=== PATIENT | male | born 1955 | race African-American/Black ===

== ENCOUNTER 2016-11-04 17:11 | Inpatient (IN) | payer MEDICARE, OTHER ==
[2016-11-04] VITALS (14 sets, daily range): BP systolic 82–260; BP diastolic 54–139; PULSE 62–96; RESP 14–20; TEMP 97.8; O2SAT 93–100
[~2016-11-04] VITALS: Ht 175.3 cm; Wt 57.5 kg
[~2016-11-04 17:11] MED LIST: CALC0.25 PO; CALC667T PO; CARV25TA PO; CLON-352 PO; CLON0.1T PO; CORE25TA PO; LISI-515 PO; LISI40TA PO; NIFE15TA PO; NIFE1TAB86 PO; RENATAB PO; RENATAB6 PO; SEVEL800 PO
--- NOTE | 2016-11-04 17:49 | RADRPT ---
EXAM DATE/TIME: 11/04/2016 17:24 [place] COMPARISON: No previous studies available for comparison. INDICATIONS : Chest Pain. MEDICAL HISTORY : Hypertension. Renal failure, chronic. Cardiovascular disease. SURGICAL HISTORY : Inguinal hernia repair. ENCOUNTER: Initial ACUITY: 2 days PAIN SCORE: 4/10 LOCATION: Bilateral chest FINDINGS: A single view of the chest demonstrates dual-lumen catheter in superior vena cava. No pneumothorax. N o effusion. Lungs are clear. CONCLUSION: 1. Dual-lumen catheter in superior vena cava. No focal consolidations or effusions. Broderick Leslie MD on November 04, 2016 at 17:46 Board Certified Radiologist. This report was verified electronically.
[2016-11-04] MEDS ORDERED: CALC667C (19:40)
[2016-11-04] MEDS ORDERED: SEVEL800 PO (19:40)
[2016-11-04] MEDS ORDERED: SODIUM BICARBONATE 8.4% SOLN 50 MEQ/50 ML VIAL SLOW IVP ONE ×2 (20:15→20:45)
[2016-11-04] MEDS ORDERED: INSULIN HUMAN REGULAR 1,000 UNITS/10 ML VIAL IV PUSH ONE (20:15)
[2016-11-04] MEDS ORDERED: CALCIUM GLUCONATE 10% 1 GM/10 ML VIAL SLOW IVP ONE ×2 (20:15→20:45)
[2016-11-04] MEDS ORDERED: SODIUM CHLORID 0.9% 500 ML INJ 500 ML IV ONE (20:15)
[2016-11-04] MEDS ORDERED: DEXTROSE 50% IN WATER 50 ML VIAL(D50) IV PUSH ONE (20:15)
[2016-11-04] MEDS ORDERED: RESP: ALBUTEROL CONC 2.5 MG/0.5 ML NEB INH ONE (20:15)
[2016-11-04 20:33] LABS: I-STAT POTASSIUM GREATER THAN 9.0 MMOL/L (3.5-4.9); I-STAT SODIUM 119 MMOL/L (138-146)
[2016-11-04 20:44] LABS: AUTOMATED NEUTROPHIL # 16.5 TH/MM3 (1.8-7.7); BASOPHIL # 0.1 TH/MM3 (0-0.2); BASOPHIL % 0.3 % (0.0-2.0); HEMATOCRIT 36.9 % (39.0-51.0); LYMPH % 3.9 % (9.0-44.0); LYMPHOCYTE # 0.7 TH/MM3 (1.0-4.8); MEAN CELL VOLUME 85.9 FL (80.0-100.0); MEAN CORPUSCULAR HEMOGLOBIN 28.8 PG (27.0-34.0); MEAN CORPUSCULAR HGB CONC 33.5 % (32.0-36.0); MONO % 8.6 % (0.0-8.0); NEUT % 87.2 % (16.0-70.0); PLATELET COUNT 215 TH/MM3 (150-450); RED CELL DISTRIBUTION WIDTH 19.8 % (11.6-17.2); WHITE BLOOD COUNT 18.9 TH/MM3 (4.0-11.0)
[2016-11-04] MEDS ORDERED: SODIUM POLYSTYRENE SULFONATE SUSP 15 GM/60 ML CUP PR ONE (20:45)
[2016-11-04] MEDS: LABETALOL INJ 500 MG in SODIUM CHLORIDE 0.9% INJ 150 ML IV SCH (20:45)
[2016-11-04 20:53] LABS: HEMO FLAGS AUTO DIFF
[2016-11-04] MEDS ORDERED: LABETALOL HCL 100 MG/20 ML VIAL IV PUSH ONE (21:00)
[2016-11-04 21:24] LABS: ACANTHOCYTES OCC (NORMAL); KERATOCYTES OCC (NORMAL); SCAN/DIFF AUTO DIFF CONFIRMED
--- NOTE | 2016-11-04 21:39 | PD ---
HPI Chief Complaint: Chest Pain Time Seen by Provider: 19:42 Travel History International Travel<30 days: No Contact w/Intl Traveler<30days: No Traveled to known affect area: No History of Present Illness HPI 61-year-old male came to the emergency room brought by his sister for not feeling well. Patient looks extremely sick. He is end-stage renal disease, hemodialysis dependent. His last dialysis was on Tuesday when he was supposed to be dialyzed today but he missed it because of feeling extremely sick and unable to make it to the dialysis center. His nutrition technician is Dr. Villarreal. He has been complaining of chest pain and abdominal pain. His blood pressure was more than 250 systolic. He was unable to give significant history due to the distress. [facility] Past Medical History Narrative Medical List of his past medical history as reviewed from the nursing note. Anemia: Yes Arthritis: Yes Asthma: No Autoimmune Disease: No Blood Disorders: No Anxiety: Yes Depression: No Heart Rhythm Problems: No Cancer: No Cardiomyopathy: Yes Cardiovascular Problems: Yes (HTN) High Cholesterol: No Chemotherapy: No Chest Pain: No COPD: No Cerebrovascular Accident: Yes (TIA) Diabetes: No Dialysis: Yes (hemodialysis ) Diminished Hearing: No Endocrine: No Gastrointestinal Disorders: Yes (HX PERITONITIS ) GERD: Yes Glaucoma: No Genitourinary: Yes Headaches: Yes ("of and on for the past 7 years and "when I get angry") Hepatitis: Yes (C) Hiatal Hernia: No Heparin Induced Thrombocytopen: No Hypertension: Yes Immune Disorder: No Implanted Vascular Access Dvce: Yes Kidney Stones: No Medical other: Yes (ARTHRITIS, ANEMIA, BACK/NECK PAIN) Musculoskeletal: Yes (ARTHRITIS, NECK/BACK PAIN) Neurologic: No Psychiatric: No Reproductive: No Respiratory: No Immunizations Current: Yes Migraines: No Radiation Therapy: No Renal Failure: Yes Seizures: No Sickle Cell Disease: No Sleep Apnea: No Thyroid Disease: No Ulcer: No Past Surgical History Abdominal Surgery: Yes (Bilateral Inguinal Hernia repair in 1960s) AICD: No Appendectomy: No Arteriovenous Shunt: Yes (RIGHT ARM) Body Medical Devices: AV DIALYSIS GRAFT (LEFT ARM), RIGHT UPPER ARM FISTULA, VAS CATH IN RIGHT CH Cardiac Surgery: No Cholecystectomy: No Ear Surgery: No Endocrine Surgery: No Eye Surgery: Yes (Knot removed from left upper eye lid ) Genitourinary Surgery: No Gynecologic Surgery: No Insulin Pump: No Joint Replacement: No Neurologic Surgery: No Oral Surgery: No Pacemaker: No Thoracic Surgery: Yes (Lumpectomy on left chest breast tissue removed 25 years ago ) Other Surgery: Yes (LUMP REMOVED FROM RIGHT BREAST TISSUE, FISTULA TO RIGHT ARM ) Social History Alcohol Use: No (HX OF) Tobacco Use: No (quit 1975) Substance Use: Yes (OCCAS POT) Allergies-Medications (Allergen,Severity, Reaction): Coded Allergies: No Known Allergies (Verified , 07/01/16) Comments No known drug allergies. Reported Meds & Prescriptions Reported Meds & Active Scripts Active Reported Calcium Acetate (Calcium Acetate (Phosphate Bin) 667 Mg Cap Renvela (Sevelamer Carbonate) 800 Mg Tab 800 Mg PO 5 TIMES A DAY [place] Rx (B-Complex W/ C & Folic Acid) 1 Tab 1 Tab PO DAILY Nifedical XL (Nifedipine) 60 Mg Tab 60 Mg PO BID Carvedilol 25 Mg Tab 25 Mg PO BID Calcitriol 0.25 Mcg Cap 0.25 Mcg PO DAILY Lisinopril 20 Mg Tab 20 Mg PO BID Clonidine (Clonidine HCl) 0.1 Mg Tab 0.1 Mg PO TID Narrative Medication List of his home medications reviewed from the nursing note. Review of Systems Except as stated in HPI: all other systems reviewed are Neg Physical Exam Narrative GENERAL: Lethargic, moderate distress, emaciated SKIN: Warm and dry. Right chest Vas-Cath, tenting of the skin HEAD: Atraumatic. Normocephalic. EYES: Pupils equal and round. No scleral icterus. No injection or drainage. ENT: No nasal bleeding or discharge. Dry mucous membrane NECK: Trachea midline. No JVD. CARDIOVASCULAR: Regular rate and rhythm. No murmur appreciated. RESPIRATORY: No accessory muscle use. Clear to auscultation. Breath sounds equal bilaterally. GASTROINTESTINAL: Abdomen soft, non-tender, nondistended. Hepatic and splenic margins not palpable. MUSCULOSKELETAL: No obvious deformities. No clubbing. No cyanosis. No edema. NEUROLOGICAL: Awake and alert. No obvious cranial nerve deficits. Motor grossly within normal limits. Normal speech. PSYCHIATRIC: Appropriate mood and affect; insight and judgment normal. Data Data Last Documented VS Vital Signs Date Time Temp Pulse Resp B/P Pulse Ox O2 Delivery O2 Flow Rate FiO2 11/04/16 19:31 99 Room Air 11/04/16 19:31 81 18 11/04/16 19:25 239/125 11/04/16 17:17 97.8 Orders Electrocardiogram (11/04/16 17:23) Complete Blood Count With Diff (11/04/16 17:23) Basic Metabolic Panel (Bmp) (11/04/16 17:23) Ckmb (Isoenzyme) Profile (11/04/16 17:23) Troponin I (11/04/16 17:23) Chest, Single Ap (11/04/16 17:23) Iv Access Insert/Monitor (11/04/16 17:23) Ecg Monitoring (11/04/16 17:23) Oxygen Administration (11/04/16 17:23) Oximetry (11/04/16 17:23) Sodium Chlorid 0.9% 500 Ml Inj (Ns 500 M (11/04/16 20:15) Labetalol Inj (Trandate Inj) (11/04/16 20:15) Calcium Gluconate Inj (Calcium Gluconate (11/04/16 20:15) Insulin Human Regular Inj (Novolin R Inj (11/04/16 20:15) Dextrose 50% In Mone (Vial) Inj (D50w (Vi (11/04/16 20:15) Sodium Bicarbonate 8.4% Inj (Sodium Bica (11/04/16 20:15) Albuterol Concentrated Neb (Albuterol Co (11/04/16 20:15) I-Stat Profile (11/04/16 20:07) Consult Vascular Access Team (11/04/16 ) Calcium Gluconate Inj (Calcium Gluconate (11/04/16 20:45) Sodium Bicarbonate 8.4% Inj (Sodium Bica (11/04/16 20:45) Sodium Polysty Sulfate Liq (Kayexalate L (11/04/16 20:45) Admit Order (Ed Use Only) (11/04/16 20:40) Labs Laboratory Tests Test 11/04/16 20:10 White Blood Count 18.9 TH/MM3 Red Blood Count 4.30 MIL/MM3 Hemoglobin 12.4 GM/DL Bedside Hemoglobin 12.6 G/DL Hematocrit 36.9 % Bedside Hematocrit 37.0 % Mean Corpuscular Volume 85.9 FL Mean Corpuscular Hemoglobin 28.8 PG Mean Corpuscular Hemoglobin 33.5 % Concent Red Cell Distribution Width 19.8 % Platelet Count 215 TH/MM3 Mean Platelet Volume 7.6 FL Neutrophils (%) (Auto) 87.2 % Lymphocytes (%) (Auto) 3.9 % Monocytes (%) (Auto) 8.6 % Eosinophils (%) (Auto) 0.0 % Basophils (%) (Auto) 0.3 % Neutrophils # (Auto) 16.5 TH/MM3 Lymphocytes # (Auto) 0.7 TH/MM3 Monocytes # (Auto) 1.6 TH/MM3 Eosinophils # (Auto) 0.0 TH/MM3 Basophils # (Auto) 0.1 TH/MM3 CBC Comment AUTO DIFF Differential Comment AUTO DIFF CONFIRMED Acanthocytes OCC Keratocytes OCC Bedside Sodium 119 MMOL/L Bedside Potassium GREATER THAN 9.0 MMOL/L Bedside Chloride 98 MMOL/L Bedside Blood Urea Nitrogen GREATER THAN 140 MG/DL Bedside Glucose 90 MG/DL MDM Medical Decision Making Medical Screen Exam Complete: Yes Emergency Medical Condition: Yes Medical Record Reviewed: Yes Interpretation(s) Twelve-lead EKG was reviewed by me. Normal sinus rhythm, peaked T waves, white QRS complex, left axis deviation. Heart rate of 87 bpm. Differential Diagnosis Hyperkalemia, hypertensive crisis, dehydration Narrative Course 9 PM given patient's initial presentation and EKG and the fact that he missed his dialysis I ordered a prophylactic treatment for hyperkalemia. Patient was a difficult peripheral access and I put a left EJ. I pushed the medications to the left EJ once the i-STAT chemistry came back with a potassium of greater than 9. I discussed the case with Dr. Hernandez who was covering for patient's nutrition technician Dr. Villarreal. He arranged for emergent dialysis and patient is currently getting dialyzed in the room. Also discussed the case with the saddle and harness maker who came to see the patient and has admitted the patient. Patient has been started on labetalol drip and a 20 mg IV labetalol bolus was given as well. 10 PM repeat i-STAT chemistry shows a potassium of 4.9 after the medications. Patient is being emergently dialyzed in ER. His blood pressure currently is in the 180s systolic. Awaiting for an ICU bed once the dialysis is over. Repeat EKG showed improving T waves and QRS complex normal width. Heart rate was 74 bpm. Critical Care Narrative Aggregate critical care time was 75 minutes. Time to perform other separately billable procedures was not included in the critical care time. My time did not include minutes spent treating any other patients simultaneously or on activities that did not directly contribute to the patient's treatment. The services I provided to this patient were to treat and/or prevent clinically significant deterioration that could result in: Critical hyperkalemia, renal failure, emergent dialysis, hyperkalemia medical management, hypertensive crisis I provided critical care services requiring my management, as noted below: Chart data review, documentation time, medication orders and management, vital sign assessments/reviewing monitor data, ordering and reviewing lab tests, ordering and interpreting/reviewing x-rays and diagnostic studies, care of the patient and discussion of the patient with the admitting physicians. Procedures Procedure Narrative EJ line: Patient was a difficult peripheral IV access. He was put in Trendelenburg position and the left side of the neck was sterilized with alcohol pad. Once EJ was identified 20-gauge and angiocatheter was inserted in first attempt. Blood was collected in the tubes and line was secured. Patient tolerated the procedure well. EKG Prior to Arrival: Yes Physician Communication Physician Communication Dr. Justen Verma Diagnosis Primary Impression: critical hyperkalemia Additional Impressions: Renal failure (ARF), acute on chronic Hypertensive crisis Dehydration Admitting Information Admitting Physician Requests: Admit Nemo Santos MD Nov 04, 2016 21:39
[2016-11-04] MEDS ORDERED: MISCELLANEOUS NURSING INFORMATION XX SCH (21:45)
[2016-11-04] MEDS ORDERED: CHLORHEXIDINE GLUCONATE 2 % 1 PACK (2 CLOTHS) TOP PRN (21:45)
[2016-11-04] MEDS ORDERED: SODIUM CHLORIDE 0.9% FLUSH 5 ML FLUSH IV FLUSH PRN (21:45)
[2016-11-04 21:56] LABS: I-STAT POTASSIUM 4.9 MMOL/L (3.5-4.9)
[2016-11-04] MEDS ORDERED: RESP: ALBUTEROL 2.5 MG/IPRATROPIUM 0.5 MG NEB (PRN) INH (22:00)
[2016-11-04] MEDS ORDERED: ONDANSETRON HCL 4 MG/2 ML VIAL IV PRN (22:00)
[2016-11-04] MEDS ORDERED: ACETAMINOPHEN 325 MG TAB PO PRN (22:00)
[2016-11-04 22:21] LABS: BICARBONATE 22.2 MEQ/L (21.0-32.0)
[2016-11-04] MEDS: RESP: ALBUTEROL 2.5 MG/IPRATROPIUM 0.5 MG NEB (SCH) INH (22:50)
[2016-11-04] MEDS ORDERED: BISACODYL 10 MG SUPP RECTAL PRN (23:00)
[2016-11-04] MEDS: HEPARIN SODIUM - IV 10,000 UNITS/10 ML VIAL OTHER PRN (23:59)
[2016-11-05] VITALS (20 sets, daily range): BP systolic 99–269; BP diastolic 48–129; PULSE 66–88; RESP 13–20; TEMP 98.1–98.6; O2SAT 96–100
[2016-11-05] MEDS ORDERED: SODIUM CHLOR 0.9% 1000 ML IV PRN
[2016-11-05] MEDS ORDERED: diphenhydrAMINE HCL 25 MG CAP PO PRN
[2016-11-05] MEDS ORDERED: ONDANSETRON HCL 4 MG/2 ML VIAL IV PRN
[2016-11-05] MEDS ORDERED: SODIUM CHLORIDE 0.9% FLUSH 5 ML FLUSH IVF PRN
[2016-11-05] MEDS: GENTAMICIN SULFATE (DIALYSIS USE ONLY) 20 MG/2 ML VIAL OTHER PRN
[2016-11-05] MEDS ORDERED: ACETAMINOPHEN 325 MG TAB PO PRN
[2016-11-05] MEDS ORDERED: NS 250 ML IV PRN
[2016-11-05] MEDS ORDERED: GELATIN 12 MM/7 MM FOAM TOP PRN
[2016-11-05] MEDS ORDERED: cloNIDine HCL 0.1 MG TAB PO PRN
[2016-11-05] MEDS ORDERED: MANNITOL 12.5 GM/50 ML VIAL IV PRN
[2016-11-05] MEDS ORDERED: ALBUMIN HUMAN 25% 25 GM/100 ML BAGP IV PRN
[2016-11-05] MEDS ORDERED: NITROGLYCERIN 0.4 MG SL 25 TABS/BTL SL PRN
[2016-11-05] MEDS ORDERED: HEPARIN SODIUM - IV 10,000 UNITS/10 ML VIAL IV FLUSH PRN
[2016-11-05] MEDS: SODIUM CHLOR 0.9% 1000 ML IV PRN
--- NOTE | 2016-11-05 00:03 | HHI.HP ---
HPI Service Critical Care Medicine Primary Care Physician Antonio Villarreal MD Admission Diagnosis ARF, hyperkalemia, hypertensive crisis Diagnosis: Travel History International Travel<30 Days: No Contact w/Intl Traveler <30 Da: No Traveled to Known Affected Are: No History of Present Illness HPI This is a 61-year-old [place] male that presented to the ED with generalized malaise, abdominal pain and chest pain. The patient's medical history significant for end-stage renal disease, and cardiac disease. His last dialysis was on Tuesday when he was supposed to be dialyzed today but he missed it because of feeling extremely sick and unable to make it to the dialysis center. His prosthetics assistant is Dr. Villarreal. He has been complaining of chest pain and abdominal pain. In the ED, his blood pressure was more than 250 systolic. Laboratory studies were obtained the patient's potassium level was noted to be 9.0. The patient underwent emergent hemodialysis, a labetalol infusion was begun in the ED. Critical care medicine was consulted for management. History PFSH Past Medical History Narrative Medical List of his past medical history as reviewed from the nursing note. Anemia: Yes Arthritis: Yes Asthma: No Autoimmune Disease: No Blood Disorders: No Anxiety: Yes Depression: No Heart Rhythm Problems: No Cancer: No Cardiomyopathy: Yes Cardiovascular Problems: Yes (HTN) High Cholesterol: No Chemotherapy: No Chest Pain: No COPD: No Cerebrovascular Accident: Yes (TIA) Diabetes: No Dialysis: Yes (hemodialysis - ) Diminished Hearing: No Endocrine: No Gastrointestinal Disorders: Yes (HX PERITONITIS ) GERD: Yes Glaucoma: No Genitourinary: Yes Headaches: Yes ("of and on for the past 7 years and "when I get angry") Hepatitis: Yes (C) Hiatal Hernia: No Heparin Induced Thrombocytopen: No Hypertension: Yes Immune Disorder: No Implanted Vascular Access Dvce: Yes Kidney Stones: No Medical other: Yes (ARTHRITIS, ANEMIA, BACK/NECK PAIN) Musculoskeletal: Yes (ARTHRITIS, NECK/BACK PAIN) Neurologic: No Psychiatric: No Reproductive: No Respiratory: No Immunizations Current: Yes Migraines: No Radiation Therapy: No Renal Failure: Yes Seizures: No Sickle Cell Disease: No Sleep Apnea: No Thyroid Disease: No Ulcer: No Past Surgical History Abdominal Surgery: Yes (Bilateral Inguinal Hernia repair in 1960s) AICD: No Appendectomy: No Arteriovenous Shunt: Yes (RIGHT ARM) Body Medical Devices: AV DIALYSIS GRAFT (LEFT ARM), RIGHT UPPER ARM FISTULA, VAS CATH IN RIGHT CH Cardiac Surgery: No Cholecystectomy: No Ear Surgery: No Endocrine Surgery: No Eye Surgery: Yes (Knot removed from left upper eye lid ) Genitourinary Surgery: No Gynecologic Surgery: No Insulin Pump: No Joint Replacement: No Neurologic Surgery: No Oral Surgery: No Pacemaker: No Thoracic Surgery: Yes (Lumpectomy on left chest breast tissue removed 25 years ago ) Other Surgery: Yes (LUMP REMOVED FROM RIGHT BREAST TISSUE, FISTULA TO RIGHT ARM ) Social History Alcohol Use: No (HX OF) Tobacco Use: No (quit 1975) Substance Use: Yes (OCCAS POT) Allergies-Medications Allergies-Medications (Allergen,Severity, Reaction): Coded Allergies: No Known Allergies (Verified , 07/01/16) Comments No known drug allergies. Reported Meds & Prescriptions Reported Meds & Active Scripts Active Reported Calcium Acetate (Calcium Acetate (Phosphate Bin) 667 Mg Cap Renvela (Sevelamer Carbonate) 800 Mg Tab 800 Mg PO 5 TIMES A DAY [place] Rx (B-Complex W/ C & Folic Acid) 1 Tab 1 Tab PO DAILY Nifedical XL (Nifedipine) 60 Mg Tab 60 Mg PO BID Carvedilol 25 Mg Tab 25 Mg PO BID Calcitriol 0.25 Mcg Cap 0.25 Mcg PO DAILY Lisinopril 20 Mg Tab 20 Mg PO BID Clonidine (Clonidine HCl) 0.1 Mg Tab 0.1 Mg PO TID Narrative Medication List of his home medications reviewed from the nursing note. ROS Review of Systems Except as stated in HPI: all other systems reviewed are Neg Review of Systems Gastrointestinal: COMPLAINS OF: Abdominal pain Past Family Social History Allergies: Coded Allergies: No Known Allergies (Verified , 07/01/16) Physical Exam Vital Signs Vital Signs Date Time Temp Pulse Resp B/P Pulse Ox O2 Delivery O2 Flow Rate FiO2 11/04/16 23:52 64 18 112/70 98 Room Air 11/04/16 23:29 65 18 95/57 95 Room Air 11/04/16 23:23 68 18 86/54 94 Room Air 11/04/16 23:00 72 18 82/61 95 Room Air 11/04/16 22:20 62 18 156/96 98 Room Air 11/04/16 21:41 74 18 180/103 99 Aerosol Mask 11/04/16 21:17 75 18 220/110 99 Room Air 11/04/16 20:59 78 18 210/100 98 Room Air 11/04/16 20:44 96 20 260/112 99 Room Air 11/04/16 19:31 99 Room Air 11/04/16 19:31 99 Room Air 11/04/16 19:31 81 18 99 Room Air 11/04/16 19:25 239/125 11/04/16 17:17 97.8 84 14 136/139 98 Physical Exam GENERAL: male looking older than stated age, lying in the bed in moderate distress SKIN: Warm and dry. HEAD: Atraumatic. Normocephalic. EYES: Pupils equal and round. No scleral icterus. No injection or drainage. ENT: No nasal bleeding or discharge. Mucous membranes pink and moist. NECK: Trachea midline. No JVD. CARDIOVASCULAR: Normal rate, regular rhythm. Severely hypertensive systolic blood pressures 249/120. Dialysis catheter in situ noted right subclavian RESPIRATORY: No accessory muscle use. Clear to auscultation. Breath sounds equal bilaterally. GASTROINTESTINAL: Abdomen soft, non-tender, nondistended. No guarding. MUSCULOSKELETAL: Extremities without clubbing, cyanosis, or edema. No obvious deformities. Noted right upper arm AV fistula, AV graft left arm. NEUROLOGICAL: Awake and alert. RASS 0. No gross focal/sensory deficits. Follows commands in all 4 extremities. Laboratory Laboratory Tests Test 11/04/16 11/04/16 20:10 21:35 White Blood Count 18.9 Red Blood Count 4.30 Hemoglobin 12.4 Bedside Hemoglobin 12.6 10.2 Hematocrit 36.9 Bedside Hematocrit 37.0 30.0 Mean Corpuscular Volume 85.9 Mean Corpuscular Hemoglobin 28.8 Mean Corpuscular Hemoglobin 33.5 Concent Red Cell Distribution Width 19.8 Platelet Count 215 Mean Platelet Volume 7.6 Neutrophils (%) (Auto) 87.2 Lymphocytes (%) (Auto) 3.9 Monocytes (%) (Auto) 8.6 Eosinophils (%) (Auto) 0.0 Basophils (%) (Auto) 0.3 Neutrophils # (Auto) 16.5 Lymphocytes # (Auto) 0.7 Monocytes # (Auto) 1.6 Eosinophils # (Auto) 0.0 Basophils # (Auto) 0.1 CBC Comment AUTO DIFF Differential Comment AUTO DIFF CONFIRMED Acanthocytes OCC Keratocytes OCC Bedside Sodium 119 132 Bedside Potassium GREATER THAN 4.9 9.0 Bedside Chloride 98 100 Bedside Blood Urea Nitrogen GREATER THAN 120 140 Bedside Glucose 90 96 Sodium Level 135 Potassium Level 5.0 Chloride Level 94 Carbon Dioxide Level 22.2 Anion Gap 19 Blood Urea Nitrogen 119 Creatinine 11.48 Estimat Glomerular Filtration 5 Rate Random Glucose 98 Calcium Level 7.9 Total Creatine Kinase 47 Troponin I 0.55 Result Diagram: 11/04/16200911/04/162134 Septic Shock Reassessment Heart: Regular rate and rhythm Lungs: Clear Skin: Warm Peripheral Pulses: Bounding Right Radial Bounding Left Radial Bounding Right Dorsalis Pedis Bounding Left Dorsalis Pedis Assessment and Plan Assessment and Plan Physical critically ill appearing -[place] male with multiple comorbid conditions to include end-stage renal failure presenting with a potassium of 9.0 , and hypertensive emergency, cardiovascular disease, angina, hemodialysis dependent. The patient's prognosis is guarded. Emergent dialysis this to be completed. Patient will be maintained on a antihypertensive infusion to tightly control blood pressure. Plan by systems: Neurologic: Pain -Patient has exocrine pancreatic insufficiency, has continuous abdominal pain -Neurochecks per ICU protocol -PRN Dilaudid and Fentanyl, will avoid morphine secondary to the active metabolic effects, morphine 6 glucoronide in ESRD Respiratory: -No acute issues maintain sat greater than 92% -Bronchodilators when necessary Cardiovascular: Hypertensive emergency Angina -Obtain 12-lead EKG - EF 45-60% -Continue beta alexandrea antihypertensive infusion-initial BP upon presentation 260/112. Patient was last hospitalized 08/15 for hypertensive emergency -Begin by mouth antihypertensive meds-Clonidine TID, Carvedilol BID, this am , plan wean infusion and resume additional antihypertensive meds lisinopril and nifedipine Renal: ESRD -Emergent dialysis -Resume schedule Tuesday -Nephrology consulted Dr. [id number] recommendations -- Strict I/Os FEN/GI: -Patient states he has a history of exocrine pancreatic insufficiency, will consult gastroenterology -Renal diet if tolerated -Bowel regimen -Zofran for nausea Heme/ID: Anemia of chronic disease Leukocytosis H/O hepatitis C -WBC 18.9 -Monitor serial lactate levels -Begin empiric antibiotics Endocrine: H/O Pancreatitis -Follow-up GI recommendations -Monitor blood glucose per ICU protocol -- SSI Prophylaxis: GI Prophylaxis Protonix DVT Prophylaxis -- SCDs Heparin Lines: Peripheral IVs 2 Dispo: This patient remains critically ill with one or more organ systems which are or may become a threat to life. I have spent in excess of 59 minutes discontinuously in the care and management of this patient. This time is exclusive of procedures, and includes, but is not limited to, evaluation of the patient, review of the medical record, discussions with family, consultants, nursing staff, or respiratory therapy, and documentation in the medical record. Code Status Full code Discussed Condition With ED RN at bedside Valerie Campuzano MD Nov 05, 2016 00:03
[2016-11-05] MEDS: HEPARIN SODIUM - SQ 10,000 UNITS/ML VIAL SQ SCH ×3 (02:29→23:41)
[2016-11-05] MEDS ORDERED: SODIUM CHLORIDE 0.9% FLUSH 5 ML FLUSH IV FLUSH PRN (03:30)
[2016-11-05] MEDS ORDERED: Vancomycin Consult Pharmacy 1 EA XX SCH (03:30)
[2016-11-05] MEDS ORDERED: ACETAMINOPHEN 1000 MG/100 ML VIAL IV ONE (03:30)
[2016-11-05] MEDS ORDERED: MISCELLANEOUS NURSING INFORMATION XX SCH (03:30)
[2016-11-05] MEDS ORDERED: CHLORHEXIDINE GLUCONATE 2 % 1 PACK (2 CLOTHS) TOP PRN (03:30)
[2016-11-05] MEDS ORDERED: fentaNYL CITRATE 250 MCG/5 ML AMP IV PUSH PRN (03:30)
[2016-11-05] MEDS: HYDROmorphone HCL PF 1 MG/ML VIAL IV PUSH PRN ×3 (03:58→23:42)
[2016-11-05] MEDS ORDERED: PIPERACIL-TAZO 4.5 GM PREMIX 100 ML IV SCH (04:00)
[2016-11-05] MEDS: CHLORHEXIDINE GLUCONATE 2 % 1 PACK (2 CLOTHS) TOP SCH (04:00)
[2016-11-05] MEDS ORDERED: CHLORHEXIDINE GLUCONATE 2 % 1 PACK (2 CLOTHS) TOP SCH (04:00)
[2016-11-05] MEDS: RESP: ALBUTEROL 2.5 MG/IPRATROPIUM 0.5 MG NEB (SCH) INH ×3 (04:02→20:59)
[2016-11-05 04:16] LABS: AUTOMATED NEUTROPHIL # 8.5 TH/MM3 (1.8-7.7); BASOPHIL # 0.1 TH/MM3 (0-0.2); BASOPHIL % 1.4 % (0.0-2.0); EOSINOPHIL % 0.1 % (0.0-4.0); HEMATOCRIT 33.9 % (39.0-51.0); HEMO FLAGS DIFF FINAL; LYMPH % 2.9 % (9.0-44.0); LYMPHOCYTE # 0.3 TH/MM3 (1.0-4.8); MEAN CELL VOLUME 86.6 FL (80.0-100.0); MEAN CORPUSCULAR HEMOGLOBIN 28.8 PG (27.0-34.0); MEAN CORPUSCULAR HGB CONC 33.3 % (32.0-36.0); MONO % 7.5 % (0.0-8.0); NEUT % 88.1 % (16.0-70.0); PLATELET COUNT 144 TH/MM3 (150-450); RED BLOOD COUNT 3.92 MIL/MM3 (4.50-5.90); RED CELL DISTRIBUTION WIDTH 19.8 % (11.6-17.2); WHITE BLOOD COUNT 9.7 TH/MM3 (4.0-11.0)
[2016-11-05 04:27] LABS: APTT (PATIENT) 30.5 SEC (24.3-30.1); PROTHROMBIN TIME - PATIENT 10.7 SEC (9.8-11.6)
[2016-11-05 04:48] LABS: BICARBONATE 21.4 MEQ/L (21.0-32.0); MAGNESIUM 4.5 MG/DL (1.5-2.5)
[2016-11-05] MEDS: PIPERACIL-TAZO 2.25 GM PREMIX 50 ML IV SCH ×4 (05:00→21:39)
[2016-11-05] MEDS ORDERED: VANCOMYCIN 1,000 MG/NS 250 ML IV SCH ×2 (06:00)
[2016-11-05] MEDS: LABETALOL INJ 500 MG in SODIUM CHLORIDE 0.9% INJ 150 ML IV SCH (06:14)
[2016-11-05] MEDS: PANTOPRAZOLE SODIUM 40 MG VIAL IV SCH (08:47)
[2016-11-05] MEDS: SODIUM CHLORIDE 0.9% FLUSH 5 ML FLUSH IV FLUSH SCH ×2 (08:47→21:34)
[2016-11-05] MEDS: CARVEDILOL 12.5 MG TAB PO SCH ×2 (08:48→21:34)
[2016-11-05] MEDS: cloNIDine HCL 0.1 MG TAB PO SCH ×3 (08:48→18:30)
[2016-11-05] MEDS: DOCUSATE SODIUM 100 MG CAP PO SCH ×2 (08:48→21:34)
[2016-11-05] MEDS ORDERED: SODIUM CHLORIDE 0.9% FLUSH 5 ML FLUSH IV FLUSH SCH (09:00)
--- NOTE | 2016-11-05 13:43 | PD.CONS ---
HPI Service Nephrology Consult Requested By Reason for Consult ESRD on HD, hypertension, hyperkalemia Primary Care Physician Antonio Villarreal MD History of Present Illness This is out 61 y/o AAM patient who missed dialysis on Tuesday due to weakness. His sister brought him in for evaluation last night. Potassium resulted at 9, he was emergently dialyzed overnight due to EKG changes, finishing just after midnight . Admission blood pressure also significantly elevated, he is on Labetalol gtt for systolic well over 200s. We were consulted for dialysis management. He has a PermCath right IJ, had old AVG removed left arm, now AVF recently placed right arm by Dr. Hussein. Complaining of chest pain on arrival, that has subsided. He is a full code. (Anne-Marie Baugh) Review of Systems Constitutional: COMPLAINS OF: Fatigue, DENIES: Diaphoretic episodes, Fever, Weight gain Respiratory: DENIES: Shortness of breath Cardiovascular: COMPLAINS OF: Chest pain, Dyspnea on Exertion, DENIES: Lower Extremity Edema Gastrointestinal: DENIES: Abdominal pain (Anne-Marie Baugh) Past Family Social History Allergies: Coded Allergies: No Known Allergies (Verified , 07/01/16) Past Medical History ESRD on HD T-Th-Sat HTN Anemia TIA Hep C Hx pancreatitis, former PD patient Anxiety/depression Hx of noncompliance Past Surgical History AVG with excision left arm AVF left arm PermCath PD catheter with removal hernia repair eye surgery right breast lumpectomy Reported Medications Calcium Acetate (Calcium Acetate (Phosphate Bin) 667 Mg Cap Renvela (Sevelamer Carbonate) 800 Mg Tab 800 Mg PO 5 TIMES A DAY [place] Rx (B-Complex W/ C & Folic Acid) 1 Tab 1 Tab PO DAILY Nifedical XL (Nifedipine) 60 Mg Tab 60 Mg PO BID Carvedilol 25 Mg Tab 25 Mg PO BID Calcitriol 0.25 Mcg Cap 0.25 Mcg PO DAILY Lisinopril 20 Mg Tab 20 Mg PO BID Clonidine (Clonidine HCl) 0.1 Mg Tab 0.1 Mg PO TID Active Ordered Medications Current Medications Medications (Trade) Dose Ordered Sig/Nuria Route Start Time Stop Time Status Last Admin (Trandate Inj/NS Inj) 250 ml @ 0 mls/hr TITRATE IV 11/04/16 20:15 11/05/16 06:14 (NS Flush) 2 ml UNSCH PRN IV FLUSH 11/04/16 21:45 (NS Flush) 2 ml BID IV FLUSH 11/05/16 09:00 11/05/16 08:47 (Tylenol) 650 mg Q6H PRN PO 11/04/16 22:00 (Protonix Inj) 40 mg DAILY IV 11/05/16 09:00 11/05/16 08:47 (Zofran Inj) 4 mg Q6H PRN IV 11/04/16 22:00 (Colace) 100 mg BID PO 11/05/16 09:00 11/05/16 08:48 (Dulcolax Supp) 10 mg DAILY PRN RECTAL 11/04/16 23:00 (Heparin Inj) 5,000 units Q12H SQ 11/04/16 23:00 11/05/16 02:29 Miscellaneous Information 1 Q361D XX 11/04/16 21:45 (Chlorhexidine 2% Cloth) 3 pack Taper DAILY@04 TOP 11/05/16 04:00 11/01/17 03:59 11/05/16 04:00 Chlorhexidine Gluconate 3 pack 3 pack UNSCH PRN TOP 11/04/16 21:45 (NS 1000 ml Inj) 1,000 ml @ 0 mls/hr TITRATE PRN IV 11/05/16 00:00 11/05/16 00:00 Heparin Sodium (Porcine) 8000 units 8,000 units UNSCH PRN IV FLUSH 11/05/16 00:00 Sodium Chloride 1,000 ml @ 200 mls/hr Q5H PRN IV 11/05/16 00:00 (NS 250 ml Inj) 200 ml @ 0 mls/hr UNSCH PRN IV 11/05/16 00:00 (Mannitol Inj) 12.5 gm UNSCH PRN IV 11/05/16 00:00 (Albumin 25% Inj) 25 gm UNSCH PRN IV 11/05/16 00:00 (NS Flush) 5 ml UNSCH PRN IVF 11/05/16 00:00 (Heparin Inj) Dwell Heparin to f... UNSCH PRN OTHER 11/05/16 00:00 11/04/16 23:59 (Gentamicin (Dialysis) Inj) 10 mg UNSCH PRN OTHER 11/05/16 00:00 11/05/16 00:00 (Gelfoam 12 Mm/7 Mm Top) 1 foam UNSCH PRN TOP 11/05/16 00:00 (Zofran Inj) 4 mg UNSCH PRN IV 11/05/16 00:00 (Benadryl) 25 mg UNSCH PRN PO 11/05/16 00:00 (Nitrostat Sl) 0.4 mg UNSCH PRN SL 11/05/16 00:00 (Catapres) 0.1 mg UNSCH PRN PO 11/05/16 00:00 (Dilaudid Pf Inj) 1 mg Q4H PRN IV PUSH 11/05/16 03:30 11/05/16 10:50 (Coreg) 25 mg BID PO 11/05/16 09:00 11/05/16 08:48 (Catapres) 0.1 mg TID PO 11/05/16 09:00 11/05/16 08:48 Fentanyl Citrate 50 mcg 50 mcg Q4HR PRN IV PUSH 11/05/16 03:30 (Zosyn 2.25 Gm Premix) 50 ml @ 200 mls/hr Q6H IV 11/05/16 05:00 Family History No hx of renal disorders Social History Lives alone, family nearby former ETOH and smoking hx He is disabled functionally independent full code (Anne-Marie Baugh) Physical Exam Vital Signs Vital Signs Date Time Temp Pulse Resp B/P Pulse Ox O2 Delivery O2 Flow Rate FiO2 11/05/16 12:00 88 11/05/16 10:00 75 11/05/16 08:00 72 11/05/16 06:00 69 11/05/16 04:54 98.3 75 13 140/84 100 11/05/16 04:33 68 20 157/78 98 Nasal Cannula 2 11/05/16 03:58 68 20 222/100 100 Nasal Cannula 2 11/05/16 03:50 216/98 11/05/16 03:00 68 20 233/104 98 Nasal Cannula 11/05/16 02:33 72 20 233/104 98 Nasal Cannula 2 11/05/16 02:32 75 20 269/129 98 11/05/16 02:12 70 20 267/128 100 11/05/16 01:40 72 20 267/128 100 11/04/16 23:52 64 18 112/70 98 Room Air 11/04/16 23:29 65 18 95/57 95 Room Air 11/04/16 23:23 68 18 86/54 94 Room Air 11/04/16 23:00 72 18 82/61 95 Room Air 11/04/16 22:20 62 18 156/96 98 Room Air 11/04/16 21:45 100 Nasal Cannula 2.00 11/04/16 21:41 74 18 180/103 99 Aerosol Mask 11/04/16 21:17 75 18 220/110 99 Room Air 11/04/16 20:59 78 18 210/100 98 Room Air 11/04/16 20:44 96 20 260/112 99 Room Air 11/04/16 19:31 99 Room Air 11/04/16 19:31 99 Room Air 11/04/16 19:31 81 18 99 Room Air 11/04/16 19:25 239/125 11/04/16 17:17 97.8 84 14 136/139 98 Physical Exam Young appearing AAM lying in bed, awake, alert normal neuro exam S1/S2, regular rate, no murmurs, BP 140/84; Permcath right IJ Lungs: clear in all go Abd: soft, non tender Ext: warm, no edema; Left arm, old AVG right arm AVF, + thrill/bruit Skin: intact Laboratory Laboratory Tests Test 11/04/16 11/04/16 11/05/16 11/05/16 20:10 21:35 03:55 04:35 White Blood Count 18.9 9.7 Red Blood Count 4.30 3.92 Hemoglobin 12.4 11.3 Bedside Hemoglobin 12.6 10.2 Hematocrit 36.9 33.9 Bedside Hematocrit 37.0 30.0 Mean Corpuscular Volume 85.9 86.6 Mean Corpuscular Hemoglobin 28.8 28.8 Mean Corpuscular Hemoglobin 33.5 33.3 Concent Red Cell Distribution Width 19.8 19.8 Platelet Count 215 144 Mean Platelet Volume 7.6 7.1 Neutrophils (%) (Auto) 87.2 88.1 Lymphocytes (%) (Auto) 3.9 2.9 Monocytes (%) (Auto) 8.6 7.5 Eosinophils (%) (Auto) 0.0 0.1 Basophils (%) (Auto) 0.3 1.4 Neutrophils # (Auto) 16.5 8.5 Lymphocytes # (Auto) 0.7 0.3 Monocytes # (Auto) 1.6 0.7 Eosinophils # (Auto) 0.0 0.0 Basophils # (Auto) 0.1 0.1 CBC Comment AUTO DIFF DIFF FINAL Differential Comment AUTO DIFF CONFIRMED Acanthocytes OCC Keratocytes OCC Bedside Sodium 119 132 Bedside Potassium GREATER THAN 4.9 9.0 Bedside Chloride 98 100 Bedside Blood Urea Nitrogen GREATER THAN 120 140 Bedside Glucose 90 96 Sodium Level 135 136 Potassium Level 5.0 4.0 Chloride Level 94 97 Carbon Dioxide Level 22.2 21.4 Anion Gap 19 18 Blood Urea Nitrogen 119 74 Creatinine 11.48 8.40 Estimat Glomerular Filtration 5 8 Rate Random Glucose 98 81 Calcium Level 7.9 8.1 Total Creatine Kinase 47 Troponin I 0.55 Prothrombin Time 10.7 Prothromb Time International 1.0 Ratio Activated Partial 30.5 Thromboplast Time Lactic Acid Level 1.8 Phosphorus Level 7.3 Magnesium Level 4.5 B-Type Natriuretic Peptide 4584 Nasal Screen MRSA (PCR) NEGATIVE (Anne-Marie Baugh) Result Diagram: 11/05/16 0355 11/05/16 0355 Imaging Last 72 hours Impressions Chest X-Ray 11/04/16 1723 Signed Impressions: Service Date/Time: October 17:24 - CONCLUSION: 1. Dual- lumen catheter in superior vena cava. No focal consolidations or effusions. Broderick Lelsie MD (Anne-Marie Baugh) Assessment and Plan Problem List: (1) ESRD (end stage renal disease) on dialysis Plan: typical -Tue HD schedule he was dialyzed overnight, finishing very early this morning (Tuesday) (1K bath, 2L UF) K has corrected, repeat lab in process Depending on above, may have next dialysis tomorrow per regular schedule fluid volume status acceptable continue current plan, orders reviewed Using PermCat for HD avoid procedures right arm high protein, low K diet (2) Hypertensive crisis Plan: On labetalol infusion, currently being titrated oral medications resumed, follow blood pressure it is improving (3) Hyperkalemia, diminished renal excretion Plan: Due to Missing dialysis repeat lab in process low K diet (4) Anemia Plan: No Epogen required, Hb acceptable also would avoid as Epogen can cause blood pressure to further elevate (5) Metabolic bone disease Plan: Phos elevated, I will resume Renvela check phos intermittently (Anne-Marie Baugh) Assessment and Plan patient was seen and examined. He is completely non compliant. Dialyzed emergently because of hyperkalemia yesterday. Dialysis most likely again tomorrow. (Yordan Hernandez MD) Anne-Marie Baugh Nov 05, 2016 13:43 Yordan Hernandez MD Nov 05, 2016 15:02
--- NOTE | 2016-11-05 14:21 | EKG ---
Date Performed: 11/04/2016 Time Performed: 21:05:45 PTAGE: 61 years EKG: Sinus rhythm POSSIBLE LEFT ATRIAL ENLARGEMENT MARKED LEFT AXIS DEVIATION MODERATE INTRAVENTRICULAR CONDUCTION DEL AY NONSPECIFIC ST & T-WAVE ABNORMALITY PROLONGED QT INTERVAL ABNORMAL ECG PREVIOUS TRACING : 11/04/2016 17.59 Since previous tracing, no significant change noted DOCTOR: Jaylin Fang Interpretating Date/Time 11/05/2016 14:20:32
--- NOTE | 2016-11-05 14:21 | EKG ---
Date Performed: 11/04/2016 Time Performed: 17:59:45 PTAGE: 61 years EKG: Sinus rhythm POSSIBLE LEFT ATRIAL ENLARGEMENT MARKED LEFT AXIS DEVIATION MODERATE INTRAVENTRICULAR CONDUCTION DEL AY NONSPECIFIC T-WAVE ABNORMALITY PROLONGED QT INTERVAL ABNORMAL ECG PREVIOUS TRACING : 10/08/2016 17.59 Since previous tracing, no significant change noted DOCTOR: Jaylin Fang Interpretating Date/Time 11/05/2016 14:20:22
[2016-11-05] MEDS ORDERED: hydrALAZINE HCL 20 MG/ML VIAL IV PUSH PRN (14:45)
[2016-11-05] MEDS ORDERED: LABETALOL HCL 100 MG/20 ML VIAL IV PUSH PRN (14:45)
[2016-11-05] MEDS: LISINOPRIL 20 MG TAB PO SCH ×2 (15:45→21:34)
[2016-11-05] MEDS: NIFEdipine 60 MG SUSTAINED RELEASE TAB PO SCH ×2 (15:49→21:34)
[2016-11-05] MEDS: SEVELAMER CARBONATE 800 MG TAB PO SCH (18:30)
[2016-11-05] MEDS ORDERED: SODIUM CHLOR 0.9% 1000 ML INJ 1,000 ML IV SCH (21:00)
[2016-11-06] VITALS: BP 120/58; PULSE 81; RESP 19; TEMP 98.3; O2SAT 99
[2016-11-06 02:00] VITALS: PULSE 73
[2016-11-06] MEDS: RESP: ALBUTEROL 2.5 MG/IPRATROPIUM 0.5 MG NEB (SCH) INH ×3 (03:22→14:55)
[2016-11-06 04:00] VITALS: BP 125/64; PULSE 72; RESP 10; TEMP 98.1; O2SAT 98
[2016-11-06] MEDS: CHLORHEXIDINE GLUCONATE 2 % 1 PACK (2 CLOTHS) TOP SCH (04:00)
[2016-11-06] MEDS: PIPERACIL-TAZO 2.25 GM PREMIX 50 ML IV SCH ×2 (05:00→11:35)
[2016-11-06 06:00] VITALS: PULSE 73
[2016-11-06] MEDS: SODIUM CHLOR 0.9% 1000 ML IV PRN (07:50)
[2016-11-06] MEDS: GENTAMICIN SULFATE (DIALYSIS USE ONLY) 20 MG/2 ML VIAL OTHER PRN (07:52)
[2016-11-06] MEDS: HEPARIN SODIUM - IV 10,000 UNITS/10 ML VIAL OTHER PRN (07:52)
[2016-11-06 08:00] VITALS: PULSE 70
[2016-11-06] MEDS: SEVELAMER CARBONATE 800 MG TAB PO SCH ×3 (08:00→16:01)
[2016-11-06] MEDS ORDERED: VITAMIN B CMPLX/VITC/FOLIC AC CAP PO SCH (09:00)
[2016-11-06 10:50] VITALS: O2SAT 99
[2016-11-06] MEDS: HEPARIN SODIUM - SQ 10,000 UNITS/ML VIAL SQ SCH (11:00)
[2016-11-06] MEDS: SODIUM CHLORIDE 0.9% FLUSH 5 ML FLUSH IV FLUSH SCH (11:18)
[2016-11-06] MEDS: PANTOPRAZOLE SODIUM 40 MG VIAL IV SCH (11:18)
[2016-11-06] MEDS: DOCUSATE SODIUM 100 MG CAP PO SCH (11:19)
[2016-11-06] MEDS: LISINOPRIL 20 MG TAB PO SCH (11:19)
[2016-11-06] MEDS: NIFEdipine 60 MG SUSTAINED RELEASE TAB PO SCH (11:19)
[2016-11-06] MEDS: CARVEDILOL 12.5 MG TAB PO SCH (11:20)
[2016-11-06] MEDS: cloNIDine HCL 0.1 MG TAB PO SCH ×2 (11:20→16:01)
[2016-11-06] MEDS: HYDROmorphone HCL PF 1 MG/ML VIAL IV PUSH PRN (11:21)
--- NOTE | 2016-11-06 12:02 | HHI.NPPN ---
Subjective Interval History had dialysis today. 4.5 liters removed. He feels better. Review of Systems General Constitutional: Fatigue Objective Data Data 11/05/16 11/06/16 19:00 07:00 Intake Total 683 ml 1544 ml Output Total 0 ml 550 ml Balance 683 ml 994 ml Intake Oral 750 ml IV Total 683 ml 161 ml Tube Feeding 283 ml Other 350 ml Output Urine Total 0 ml 350 ml Stool Total 200 ml # Bowel Movements 0 Vital Signs Date Time Temp Pulse Resp B/P Pulse Ox O2 Delivery O2 Flow Rate FiO2 11/06/16 10:50 99 11/06/16 08:00 70 11/06/16 06:00 73 11/06/16 04:00 72 11/06/16 04:00 98.1 72 10 125/64 98 11/06/16 02:00 73 11/06/16 00:00 81 11/06/16 00:00 98.3 81 19 120/58 99 11/05/16 22:00 70 11/05/16 20:59 96 Nasal Cannula 2.00 11/05/16 20:00 98.1 67 13 99/48 96 11/05/16 20:00 67 11/05/16 18:00 84 11/05/16 16:02 98 Nasal Cannula 2.00 11/05/16 16:00 82 11/05/16 16:00 98.6 72 14 114/58 100 11/05/16 14:00 71 11/05/16 12:00 88 11/05/16 12:00 98.3 67 15 159/69 96 -: 11/05/16 0355 11/05/16 0355 Physical Exam General Appearance: Well Developed, No Acute Distress Throat Throat Exam: Oral Mucosa [place] & Moist Pulmonary Resp Exam: Clear Bilaterally, Breath Sounds Equal Cardiology CV Exam: Regular, Normal Sinus Rhythm Gastrointestinal/Abdomen GI Exam: Soft, Non-Tender Musculoskeletal MS Exam: Joints Intact Integumentary Skin Exam: Clear, Intact Extremeties Extremities Exam: No Edema Neurologic Neuro Exam: Moving All Extremities Psychiatric Psych Exam: Appropriate Responses Assessment/Plan Problem List: (1) ESRD (end stage renal disease) on dialysis Plan: Dialysis conducted today, he tolerated it well. He is clinically stable. Hyperkalemia has resolved. (2) Hypertensive crisis Plan: On labetalol infusion, currently being titrated oral medications resumed, follow blood pressure it is improving (3) Hyperkalemia, diminished renal excretion Plan: Due to Missing dialysis repeat level was normal as of 11/05. (4) Anemia Plan: Hemoglobin is acceptable. (5) Metabolic bone disease Plan: Phosphorus was high, Renvela restarted. Plan patient can be discharged from renal standpoint. Yordan Hernandez MD Nov 06, 2016 12:02
[2016-11-06 13:50] LABS: BICARBONATE 28.8 MEQ/L (21.0-32.0); POTASSIUM 3.5 MEQ/L (3.5-5.1)
--- NOTE | 2016-11-06 14:11 | HHI.PR ---
Subjective Remarks Patient reports that he is feeling great. He reports that he will be more compliant. He is cleared for discharge from a renal standpoint. He is agreeable to going home. Objective Vitals Vital Signs Date Time Temp Pulse Resp B/P Pulse Ox O2 Delivery O2 Flow Rate FiO2 11/06/16 10:50 99 11/06/16 08:00 70 11/06/16 06:00 73 11/06/16 04:00 72 11/06/16 04:00 98.1 72 10 125/64 98 11/06/16 02:00 73 11/06/16 00:00 81 11/06/16 00:00 98.3 81 19 120/58 99 11/05/16 22:00 70 11/05/16 20:59 96 Nasal Cannula 2.00 11/05/16 20:00 98.1 67 13 99/48 96 11/05/16 20:00 67 11/05/16 18:00 84 11/05/16 16:02 98 Nasal Cannula 2.00 11/05/16 16:00 82 11/05/16 16:00 98.6 72 14 114/58 100 I/O 11/05/16 11/05/16 11/05/16 11/06/16 11/06/16 11/06/16 07:00 15:00 23:00 07:00 15:00 23:00 Intake Total 477 ml 683 ml 561 ml 983 ml Output Total 2000 ml 0 ml 0 ml 550 ml Balance -1523 ml 683 ml 561 ml 433 ml Intake Oral 0 ml 400 ml 350 ml IV Total 477 ml 683 ml 161 ml 0 ml Tube Feeding 283 ml Other 350 ml Output Urine Total 0 ml 0 ml 0 ml 350 ml Stool Total 200 ml Hemodialysis 2000 ml # Bowel Movements 0 0 Result Diagram: 11/05/16 0355 11/06/16 1310 Imaging Last Impressions Chest X-Ray 11/04/16 1723 Signed Impressions: Service Date/Time: October 17:24 - CONCLUSION: 1. Dual- lumen catheter in superior vena cava. No focal consolidations or effusions. Broderick Leslie MD Objective Remarks GENERAL: This is a well-nourished, well-developed patient, in no apparent distress. CARDIOVASCULAR: Normal rate and regular rhythm without murmurs, gallops, or rubs. RESPIRATORY: Good respiratory efforts. Breath sounds equal and clear to auscultation bilaterally. GASTROINTESTINAL: Abdomen soft, non-tender, non-distended. Normal active bowel sounds MUSCULOSKELETAL: Extremities without cyanosis, or edema. NEURO: Alert & Oriented x4 to person, place, time, situation. Moves all ext x4 PSYCH: Appropriate mood and affect. A/P Assessment and Plan 61-year-old male with end-stage renal disease on dialysis who has had issues with noncompliance. The patient missed dialysis and presented to the hospital with marked hyperkalemia and hypertensive emergency. He was admitted to the ICU and underwent emergent dialysis. He was put on a beta alexandrea infusion to control his blood pressure -Patient also has a history of pancreatic exocrine insufficiency. He is followed by GI outpatient and reports that the workup is ongoing. Patient is advised to follow-up with GI. The patient status significantly improved after dialysis. His blood pressure is now controlled. He is cleared for discharge to follow up outpatient. He was thoroughly counseled on the need to be compliant. Discharge home in stable condition Activity: Regular as tolerated Diet: Renal failure diet Follow-up with nephrology and gastroenterology as scheduled. New meds: None. See med rec. Resume all home medications. Fred Yadav MD Nov 06, 2016 14:11
--- NOTE | 2016-11-06 14:11 | HHI.DCPOC ---
Discharge Care Plan Diagnosis: (1) End stage renal disease (2) Hypertensive emergency (3) Hyperkalemia (4) ESRD (end stage renal disease) on dialysis Goals to Promote Your Health * To prevent worsening of your condition and complications * To maintain your health at the optimal level Directions to Meet Your Goals Take your medications as prescribed Follow your dietary instruction Follow activity as directed Keep your appointments as scheduled Take your immunizations and boosters as scheduled If your symptoms worsen call your PCP, if no PCP go to Urgent Care Center or Emergency Room Smoking is Dangerous to Your Health. Avoid second hand smoke Call the 24-hour hour crisis hotline for domestic abuse at Fred Yadav MD Nov 06, 2016 14:10
== END 2016-11-06 19:25 | disposition home or self-care (01) | DRG 682 ==
LOC: NEPC 17:11 → NEDA 20:43 → HIMW 11-05 04:15
PROVIDERS: ADMIT Family Medicine; ATTEND Family Medicine
PROC: 5A1D60Z (ICD-10-PCS; principal; 2016-11-04)
PROC: 05HQ33Z Insertion of Infusion Device into Left External Jugular Vein, Percutaneous Approach (ICD-10-PCS; 2016-11-04)
DX: I12.0 Hypertensive chronic kidney disease with stage 5 chronic kidney disease or end stage renal disease (principal); N18.6 End stage renal disease; N17.9 Acute kidney failure, unspecified; E87.5 Hyperkalemia; K86.81 Exocrine pancreatic insufficiency; I16.9 Hypertensive crisis, unspecified; Z99.2 Dependence on renal dialysis; Z86.73 Personal history of transient ischemic attack (TIA), and cerebral infarction without residual deficits; I25.119 Atherosclerotic heart disease of native coronary artery with unspecified angina pectoris; D63.8 Anemia in other chronic diseases classified elsewhere; B19.20 Unspecified viral hepatitis C without hepatic coma; F32.9 Major depressive disorder, single episode, unspecified; F41.9 Anxiety disorder, unspecified; Z91.19 Patient's noncompliance with other medical treatment and regimen; Z87.891 Personal history of nicotine dependence
CPT/HCPCS: 71010; 76937; 80048; 80202; 82040; 82435; 82550; 82565; 82947; 83605; 83735; 83880; 84100; 84132; 84295; 84484; 84520; 85025; 85610; 85730; 87641; 90935; 93005; 94640; 94664; 96374; 96375; 99292; C9113; J0360; J0610; J1170; J1580; J1644; J1815; J2543; J3370; J7030; J7040; J7050; J7611

== ENCOUNTER → 2016-11-19 | Outpatient (CLI) | payer MEDICARE, OTHER ==
[~2016-11-19] MED LIST changes: +BACT800T5 PO; +BIAX500T PO; +CALC667C; -CALC667T PO; -CLON-352 PO; +CREO3000 PO; -LISI40TA PO; -NIFE1TAB86 PO; -RENATAB PO; +VITA200012 PO
[2016-11-20 12:01] LABS: FECAL FAT % FAT 12 % fat (< 20)
== END ==
LOC: CLAB 11-17 12:18
PROVIDERS: ATTEND Internal Medicine Gastroenterology
DX: R19.7 Diarrhea, unspecified (principal)
CPT/HCPCS: 36415; 82710; 83519

== ENCOUNTER → 2016-12-24 | Outpatient (CLI) | payer MEDICARE, OTHER ==
[2016-12-24 09:54] LABS: AUTOMATED NEUTROPHIL # 7.5 TH/MM3 (1.8-7.7); BASOPHIL # 0.1 TH/MM3 (0-0.2); BASOPHIL % 0.7 % (0.0-2.0); EOSINOPHIL # 0.2 TH/MM3 (0-0.4); EOSINOPHIL % 2.2 % (0.0-4.0); HEMATOCRIT 35.8 % (39.0-51.0); HEMO FLAGS DIFF FINAL; LYMPH % 10.4 % (9.0-44.0); MEAN CELL VOLUME 90.2 FL (80.0-100.0); MEAN CORPUSCULAR HEMOGLOBIN 29.5 PG (27.0-34.0); MEAN CORPUSCULAR HGB CONC 32.7 % (32.0-36.0); MONO % 7.9 % (0.0-8.0); NEUT % 78.8 % (16.0-70.0); PLATELET COUNT 254 TH/MM3 (150-450); RED BLOOD COUNT 3.97 MIL/MM3 (4.50-5.90); WHITE BLOOD COUNT 9.5 TH/MM3 (4.0-11.0)
[2016-12-24 10:01] LABS: PROTHROMBIN TIME - PATIENT 10.6 SEC (9.8-11.6)
[2016-12-24 10:14] LABS: ALKALINE PHOSPHATASE 110 U/L (45-117); ALT (GPT) 79 U/L (12-78); AMYLASE 115 U/L (25-115); ANION GAP 13 MEQ/L (5-15); AST (GOT) 55 U/L (15-37); BICARBONATE 25.4 MEQ/L (21.0-32.0); BLOOD UREA NITROGEN 46 MG/DL (7-18); CHLORIDE 97 MEQ/L (98-107); GLOMERULAR FILTRATION RATE 8 ML/MIN (>89); GLUCOSE,FASTING 135 MG/DL (74-99); POTASSIUM 3.7 MEQ/L (3.5-5.1); SODIUM (NA) 135 MEQ/L (136-145); TOTAL BILIRUBIN ADULT 0.4 MG/DL (0.2-1.0)
[2016-12-26 13:53] LABS: HCV RNA PCR LOGIU/ML 6.37 (())
== END ==
LOC: CLAB 09:23
PROVIDERS: ATTEND Internal Medicine Gastroenterology
DX: K86.9 Disease of pancreas, unspecified (principal); B18.2 Chronic viral hepatitis C
CPT/HCPCS: 36415; 80053; 82105; 82150; 82248; 83690; 85025; 85610; 87522

== ENCOUNTER → 2017-02-10 | Outpatient (CLI) | payer MEDICARE, OTHER | LOC: CLAB 08:56 | PROVIDERS: ATTEND Internal Medicine Infectious Disease | DX: A41.89 Other specified sepsis (principal); A49.8 Other bacterial infections of unspecified site; I12.0 Hypertensive chronic kidney disease with stage 5 chronic kidney disease or end stage renal disease; N18.6 End stage renal disease; Z99.2 Dependence on renal dialysis | CPT/HCPCS: 36415; 87040; 87116 ==

== ENCOUNTER 2017-03-06 06:13 | Observation (INO) | payer MEDICARE, OTHER ==
[2017-03-06] VITALS (7 sets, daily range): BP systolic 105–121; BP diastolic 65–83; PULSE 80–109; RESP 16–20; TEMP 96.9–98.6; O2SAT 96–100
[~2017-03-06] VITALS: Ht 177.8 cm; Wt 60.0 kg
[~2017-03-06 06:13] MED LIST changes: -BACT800T5 PO; -BIAX500T PO; -CORE25TA PO; -CREO3000 PO; -VITA200012 PO
[2017-03-06] MEDS ORDERED: BACT800T5 PO (06:30)
[2017-03-06] MEDS ORDERED: BIAX500T PO (06:39)
--- NOTE | 2017-03-06 06:44 | PD ---
HPI Chief Complaint: Syncope/Near-Syncope Time Seen by Provider: 06:27 Travel History International Travel<30 days: No Contact w/Intl Traveler<30days: No Traveled to known affect area: No History of Present Illness HPI Is a 62-year-old male multiple medical problems presents to the emergency department complaining these been feeling ill for a couple days, unsteadiness gait, some blurry vision, lightheadedness. Is a history of end-stage renal disease. Is been on peritoneal dialysis in the past. He is on hemodialysis now , Tuesday with Dr. Villarreal. Ms. Tuesday dialysis yesterday because he states he arrived to late. It a history of a left AV fistula that was infected and had to be removed. He now has a poor in his right chest, and a right AV fistula that maturing. He reports that he was recently restarted on Bactrim for evidence of infection in his bloodstream. He denies any other specific complaints at this time but states he came in this morning because his gait was very unsteady. During the night he got up to turn the TV off when he came back to sit on the couch she believes he passed out. He was going to sit down on the couch for woke up on the floor. He doesn't believe he injured himself. This has happened to him one time in the past. He did take his antibiotics and thinks maybe this effected him. Patient also states not had a bowel movement in several days and feels bloating. He would like something for his constipation. 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 Hypertension Anemia TIA Hepatitis C History of pancreatitis, on peritoneal dialysis in the past Anxiety depression History of noncompliance Social History Alcohol Use: No (HX OF) Tobacco Use: No (quit 1975) Allergies-Medications (Allergen,Severity, Reaction): Coded Allergies: No Known Allergies (Verified , 03/06/17) Reported Meds & Prescriptions Reported Meds & Active Scripts Active Reported Biaxin (Clarithromycin) 500 Mg Tab 500 Mg PO BID Bactrim DS (Sulfamethoxazole-Trimethoprim) 800-160 Mg Tab 1 Tab PO DAILY Calcium Acetate (Calcium Acetate (Phosphate Bin) 667 Mg Cap Renvela (Sevelamer Carbonate) 800 Mg Tab 800 Mg PO 5 TIMES A DAY [place] Rx (B-Complex W/ C & Folic Acid) 1 Tab 1 Tab PO DAILY Nifedical XL (Nifedipine) 60 Mg Tab 60 Mg PO BID Carvedilol 25 Mg Tab 25 Mg PO BID Calcitriol 0.25 Mcg Cap 0.25 Mcg PO DAILY Lisinopril 20 Mg Tab 20 Mg PO BID Clonidine (Clonidine HCl) 0.1 Mg Tab 0.1 Mg PO TID Review of Systems Except as stated in HPI: all other systems reviewed are Neg Physical Exam Narrative GENERAL: Generally well-appearing 62-year-old man, nontoxic, no acute distress. SKIN: Focused skin assessment warm/dry. HEAD: Atraumatic. Normocephalic. CARDIOVASCULAR: Regular rate and rhythm. No murmur appreciated. RESPIRATORY: No accessory muscle use. Clear to auscultation. Breath sounds equal bilaterally. GASTROINTESTINAL: Abdomen soft, non-tender, nondistended. Hepatic and splenic margins not palpable. MUSCULOSKELETAL: No obvious deformities. No edema. NEUROLOGICAL: Awake and alert. No obvious cranial nerve deficits. Motor grossly within normal limits. Normal speech. PSYCHIATRIC: Appropriate mood and affect; insight and judgment normal. Data Data Last Documented VS Vital Signs Date Time Temp Pulse Resp B/P Pulse Ox O2 Delivery O2 Flow Rate FiO2 03/06/17 06:46 91 16 118/77 100 Room Air 03/06/17 06:19 98.6 Orders Complete Blood Count With Diff (03/06/17 06:39) Comprehensive Metabolic Panel (03/06/17 06:39) Iv Access Insert/Monitor (03/06/17 06:39) Chest, Single Ap (03/06/17 ) Electrocardiogram (03/06/17 ) Abdomen, Kub Only (03/06/17 ) Lactulose Liq (Lactulose Liq) (03/06/17 07:00) MDM Medical Decision Making Medical Screen Exam Complete: Yes Emergency Medical Condition: Yes Interpretation(s) My review of EKG: Normal sinus rhythm at a rate of 91, leftward axis, inferior septal Q waves, no definite evidence of acute ischemia. Differential Diagnosis Weakness, near syncope, syncope, hypotension, missed dialysis, uremia, electrolyte abnormality, other Narrative Course Medical decision making INITIAL: 61-year-old man presents with unsteady gait, lightheadedness, blurry vision, in the setting of missing dialysis. Looks otherwise generally well. We 'll check labs, x-ray, EKG, reassess. Also check abdominal x-ray. We'll give him lactulose for constipation. Patient will likely be able to be discharged unless he has indications for emergent dialysis. Sohan Handy MD March 06, 2017 06:44
[2017-03-06] MEDS ORDERED: LACTULOSE SYRUP 20 GM/30 ML CUP PO ONE (07:00)
[2017-03-06 07:13] LABS: ALKALINE PHOSPHATASE 126 U/L (45-117); ALT (GPT) 36 U/L (12-78); ANION GAP 16 MEQ/L (5-15); BICARBONATE 19.9 MEQ/L (21.0-32.0); BLOOD UREA NITROGEN 75 MG/DL (7-18); CHLORIDE 93 MEQ/L (98-107); GLOMERULAR FILTRATION RATE 5 ML/MIN (>89); SODIUM (NA) 129 MEQ/L (136-145); TOTAL BILIRUBIN ADULT 0.4 MG/DL (0.2-1.0)
--- NOTE | 2017-03-06 07:16 | RADRPT ---
EXAM DATE/TIME: 03/06/2017 06:52 [facility] COMPARISON: CHEST SINGLE AP, November 04, 2016, 17:24. INDICATIONS : Short of Breath MEDICAL HISTORY : Hypertension. Renal failure, chronic. Cardiovascular disease. SURGICAL HISTORY : Inguinal hernia repair. ENCOUNTER: Initial ACUITY: 1 day PAIN SCORE: 0/10 LOCATION: Bilateral chest FINDINGS: A single view of the chest demonstrates the lungs to be symmetrically aerated without evidence of mas s, infiltrate or effusion. The right double lumen central venous line remains in place. There are Y. electrocardiogram leads. The cardiomediastinal contours are unremarkable. Osseous structures are in tact. CONCLUSION: No acute disease. Narayan Tamayo MD on March 06, 2017 at 7:13 Board Certified Radiologist. This report was verified electronically.
--- NOTE | 2017-03-06 07:16 | RADRPT ---
EXAM DATE/TIME: 03/06/2017 06:55 [facility] COMPARISON: ABDOMEN KUB ONLY, September 10, 2015, 16:34. INDICATIONS : Abdomen pain MEDICAL HISTORY : Hypertension. Renal failure, chronic. Cardiovascular disease. SURGICAL HISTORY : Inguinal hernia repair. ENCOUNTER: Initial ACUITY: 1 day PAIN SCORE: 4/10 LOCATION: Bilateral abdomen FINDINGS: Supine view of the abdomen was performed. There is moderate to large amount of stool throughout the c olon. No abnormal masses, calcifications, or organomegaly is seen. The osseous structures are unrema rkable. CONCLUSION: Moderate to large amount of stool throughout the colon. Narayan Tamayo MD on March 06, 2017 at 7:14 Board Certified Radiologist. This report was verified electronically.
[2017-03-06 07:44] LABS: AUTOMATED NEUTROPHIL # 2.8 TH/MM3 (1.8-7.7); BASOPHIL % 0.6 % (0.0-2.0); EOSINOPHIL # 0.1 TH/MM3 (0-0.4); EOSINOPHIL % 2.1 % (0.0-4.0); HEMATOCRIT 36.8 % (39.0-51.0); HEMO FLAGS DIFF FINAL; LYMPHOCYTE # 0.9 TH/MM3 (1.0-4.8); MEAN CELL VOLUME 86.5 FL (80.0-100.0); MEAN CORPUSCULAR HEMOGLOBIN 28.8 PG (27.0-34.0); MEAN CORPUSCULAR HGB CONC 33.2 % (32.0-36.0); MONO % 9.7 % (0.0-8.0); NEUT % 66.6 % (16.0-70.0); PLATELET COUNT 196 TH/MM3 (150-450); RED BLOOD COUNT 4.25 MIL/MM3 (4.50-5.90); RED CELL DISTRIBUTION WIDTH 16.4 % (11.6-17.2); WHITE BLOOD COUNT 4.2 TH/MM3 (4.0-11.0)
[2017-03-06 08:19] LABS: AST (GOT) 63 U/L (15-37); POTASSIUM 5.8 MEQ/L (3.5-5.1)
--- NOTE | 2017-03-06 09:25 | RADRPT ---
EXAM DATE/TIME: 03/06/2017 09:15 [facility] COMPARISON: CT BRAIN W/O CONTRAST, November 12, 2013, 9:41. INDICATIONS : Dizziness; confusion. RADIATION DOSE: 36.35 CTDIvol (mGy) MEDICAL HISTORY : Hypertension. TIA. SURGICAL HISTORY : None. ENCOUNTER: Initial ACUITY: 1 day PAIN SCALE: 5/10 LOCATION: cranial TECHNIQUE: Multiple contiguous axial images were obtained of the head. Using automated exposure control and adj ustment of the mA and/or kV according to patient size, radiation dose was kept as low as reasonably a chievable to obtain optimal diagnostic quality images. FINDINGS: CEREBRUM: The ventricles are normal for age with mild atrophy and chronic small vessel ischemic change. No evid ence of midline shift, mass lesion, hemorrhage or acute infarction. No extra-axial fluid collections are seen. POSTERIOR FOSSA: The cerebellum and brainstem are intact. The 4th ventricle is midline. The cerebellopontine angle i s unremarkable. EXTRACRANIAL: The visualized portion of the orbits is intact. Mucosal thickening is present in the left maxillary s inus. SKULL: The calvaria is intact. No evidence of skull fracture. CONCLUSION: 1. Stable appearance with no evidence of hemorrhage, mass or acute infarction. 2. Atrophy and chronic small vessel ischemic changes. 3. Mucosal thickening in the left maxillary sinus. Narayan Tamayo MD on March 06, 2017 at 9:20 Board Certified Radiologist. This report was verified electronically.
--- NOTE | 2017-03-06 09:38 | PD ---
Physical Exam Narrative Patient signed out to me by Dr. Handy to follow-up labs and disposition. Please see his documentation for complete history and physical details. Briefly, patient is a 62-year-old male who comes in after he says he syncopized last night. He says he has been feeling unwell for the past few days. He missed dialysis on Tuesday. He says he feels very dizzy and unsteady on his feet. He says this is how he feels when he needs dialysis. Data Data Last Documented VS Vital Signs Date Time Temp Pulse Resp B/P Pulse Ox O2 Delivery O2 Flow Rate FiO2 03/06/17 09:06 82 18 105/69 96 03/06/17 06:46 Room Air 03/06/17 06:19 98.6 Orders Complete Blood Count With Diff (03/06/17 06:39) Comprehensive Metabolic Panel (03/06/17 06:39) Iv Access Insert/Monitor (03/06/17 06:39) Chest, Single Ap (03/06/17 ) Electrocardiogram (03/06/17 ) Abdomen, Kub Only (03/06/17 ) Lactulose Liq (Lactulose Liq) (03/06/17 07:00) Ct Brain W/O Iv Contrast(Rout) (03/06/17 ) Acetaminophen (Tylenol) (03/06/17 09:45) Labs Laboratory Tests Test 03/06/17 07:28 White Blood Count 4.2 TH/MM3 Red Blood Count 4.25 MIL/MM3 Hemoglobin 12.2 GM/DL Hematocrit 36.8 % Mean Corpuscular Volume 86.5 FL Mean Corpuscular Hemoglobin 28.8 PG Mean Corpuscular Hemoglobin 33.2 % Concent Red Cell Distribution Width 16.4 % Platelet Count 196 TH/MM3 Mean Platelet Volume 7.4 FL Neutrophils (%) (Auto) 66.6 % Lymphocytes (%) (Auto) 21.0 % Monocytes (%) (Auto) 9.7 % Eosinophils (%) (Auto) 2.1 % Basophils (%) (Auto) 0.6 % Neutrophils # (Auto) 2.8 TH/MM3 Lymphocytes # (Auto) 0.9 TH/MM3 Monocytes # (Auto) 0.4 TH/MM3 Eosinophils # (Auto) 0.1 TH/MM3 Basophils # (Auto) 0.0 TH/MM3 CBC Comment DIFF FINAL Differential Comment Sodium Level 129 MEQ/L Potassium Level 5.8 MEQ/L Chloride Level 93 MEQ/L Carbon Dioxide Level 19.9 MEQ/L Anion Gap 16 MEQ/L Blood Urea Nitrogen 75 MG/DL Creatinine 11.90 MG/DL Estimat Glomerular Filtration 5 ML/MIN Rate Random Glucose 112 MG/DL Calcium Level 10.1 MG/DL Total Bilirubin 0.4 MG/DL Aspartate Amino Transf 63 U/L (AST/SGOT) Alanine Aminotransferase 36 U/L (ALT/SGPT) Alkaline Phosphatase 126 U/L Total Protein 9.4 GM/DL Albumin 4.2 GM/DL [facility] Supervised Visit with ZEINA: No Narrative Course Patient is wobbly when he stands. He is complaining of abdominal pain and says that he needs to have a bowel movement. X-ray of his abdomen does show a large amount of stool in his colon. He says he feels like the lactulose is starting to work. Labs show a creatinine of 11.9. Potassium is 5.8. There are no EKG changes. I spoke with nephrology, who will arrange for dialysis for the patient. Patient was placed in observation. Diagnosis Primary Impression: Syncope Qualified Code: R55 - Syncope, unspecified syncope type Additional Impressions: Dizziness Hyperkalemia Admitting Information Admitting Physician Requests: Observation Marleny Hdz MD March 06, 2017 09:38
[2017-03-06] MEDS ORDERED: ACETAMINOPHEN 325 MG TAB PO ONE (09:45)
[2017-03-06] MEDS ORDERED: NALOXONE HCL 0.4 MG/ML AMP IV PRN (10:15)
[2017-03-06] MEDS ORDERED: SODIUM CHLORIDE 0.9% FLUSH 10 ML FLUSH IV FLUSH PRN ×2 (10:15→11:15)
[2017-03-06] MEDS ORDERED: ONDANSETRON HCL 4 MG/2 ML VIAL IVP PRN (10:15)
[2017-03-06] MEDS ORDERED: ACETAMINOPHEN 325 MG TAB PO PRN ×2 (10:15→11:15)
[2017-03-06] MEDS ORDERED: MAGNESIUM HYDROXIDE SUSP 30 ML CUP PO PRN (10:15)
--- NOTE | 2017-03-06 10:35 | EKG ---
Date Performed: 03/06/2017 Time Performed: 06:33:16 PTAGE: 62 years EKG: Sinus rhythm WITH SINUS ARRHYTHMIA MARKED LEFT AXIS DEVIATION SEPTAL MYOCARDIAL INFARCTION ABNORMAL ECG NO PREVIOUS TRACING DOCTOR: Annetta Reilly Interpretating Date/Time 03/06/2017 10:34:05
[2017-03-06] MEDS ORDERED: SODIUM CHLOR 0.9% 1000 ML INJ 1,000 ML IV PRN ×3 (11:09)
[2017-03-06] MEDS ORDERED: HEPARIN SODIUM - IV 10,000 UNITS/10 ML VIAL IVF PRN (11:15)
[2017-03-06] MEDS ORDERED: NITROGLYCERIN 0.4 MG SL 25 TABS/BTL SL PRN (11:15)
[2017-03-06] MEDS ORDERED: ONDANSETRON HCL 4 MG/2 ML VIAL IV PRN (11:15)
[2017-03-06] MEDS ORDERED: HEPARIN SODIUM - IV 10,000 UNITS/10 ML VIAL PRN (11:15)
[2017-03-06] MEDS ORDERED: diphenhydrAMINE HCL 25 MG CAP PO PRN (11:15)
[2017-03-06] MEDS ORDERED: GENTAMICIN SULFATE (DIALYSIS USE ONLY) 20 MG/2 ML VIAL IV PRN (11:15)
[2017-03-06] MEDS ORDERED: MANNITOL 12.5 GM/50 ML VIAL IV PRN (11:15)
[2017-03-06] MEDS ORDERED: ALBUMIN HUMAN 25% 25 GM/100 ML BAGP IV PRN (11:15)
[2017-03-06] MEDS ORDERED: GELATIN 12 MM/7 MM FOAM TOP PRN (11:15)
[2017-03-06] MEDS ORDERED: cloNIDine HCL 0.1 MG TAB PO PRN (11:15)
--- NOTE | 2017-03-06 14:55 | MB ---
cc: NINO CR MD DATE OF CONSULTATION: 03/06/2017 REASON FOR CONSULTATION End-stage renal disease on hemodialysis, for management. HISTORY OF PRESENT ILLNESS This is a 62-year-old male with a past medical history of hypertension, hepatitis C, chronic anemia, anxiety, depression, end-stage renal disease on hemodialysis three times per week, came to the hospital because of worsening shortness of breath and feeling dizzy and near syncope. I was called to see the patient for management of dialysis. He has been on hemodialysis Tuesday, and Tuesday, was supposed to go for dialysis yesterday but he could not go because there was something wrong with his car and the car was fixed and he went there, it was late after 05:00 p.m. and they could not do the dialysis so he was sent home. The patient has had gradual worsening of shortness of breath since yesterday evening and has been feeling dizzy and has some blurring of vision and lightheadedness. He has no history of fever. Denies any chest pain, nausea or vomiting. The patient has a Perma-Cath and awaiting right AV fistula maturation. He has known history of noncompliance. PAST MEDICAL HISTORY 1. Hypertension. 2. Chronic anemia. 3. Hepatitis C. 4. Anxiety, depression. 5. History of pancreatitis. 6. End-stage renal disease on hemodialysis three times per week. PAST SURGICAL HISTORY Right arm AV fistula surgery. Perma-Cath placement. REVIEW OF SYSTEMS The patient has generalized weakness, feeling tired, has worsening shortness of breath especially on exertion and also has dizziness and lightheadedness with walking. No chest pain. No nausea or vomiting. No abdominal pain. No history of diarrhea. SOCIAL HISTORY He has history of smoking and also using marijuana. There is no history of heavy alcoholism now but he has past history of alcoholism. FAMILY HISTORY Review of the family history is noncontributory. ALLERGIES NO KNOWN DRUG ALLERGIES. PHYSICAL EXAMINATION GENERAL: On examination the patient is awake, alert. He is currently on hemodialysis. His last blood pressure is 105/69, temperature 98.6, oxygen saturation is 96-100%. HEENT: Pupils equally reacting to light. Nonicteric sclerae. Conjunctivae pale. NECK: Supple. JVD is slightly elevated. LUNGS: The patient has bilateral decreased air entry with scattered wheezing and basilar rales. HEART: S1, S2, regular rhythm. ABDOMEN: Soft, lax. There is no tenderness. Bowel sounds positive. EXTREMITIES: He has no edema. The right arm has AV fistula with good bruit. INVESTIGATION WBC count is 4.2, hemoglobin 12.2, platelet count 196, neutrophils 66.6%, sodium 129, potassium 5.8, chloride 93, bicarb 19.9, BUN 75, creatinine 11.9, AST is 63, ALT is 36, alkaline phosphatase 126. IMAGING STUDIES The patient has abdominal x-ray done which shows stool in the colon. Chest x-ray was done which shows that he has some increased vascular marking. CT scan of the head was done which shows no evidence of hemorrhage and there is some atrophy and chronic small-vessel changes. ASSESSMENT/PLAN 1. End-stage renal disease on hemodialysis. 2. Fluid overload status. 3. Hyperkalemia and metabolic acidosis. 4. Dizziness and near-syncope. 5. History of hepatitis C. The patient is now on hemodialysis, we are trying to remove more fluid. His blood pressure is on the lower side. He usually used to run very high blood pressure, so we will see how much fluid we can get out with dialysis, trying for 4 liters at present. His hemoglobin is not very low, it is 12.2, so we are holding the Epogen for today's dialysis. The patient is admitted for observation and once he is stable then possibly tomorrow can be discharged. Dr. Hernandez will follow the patient from tomorrow. Thank you for the consultation. MD ES Gonzalez/MIMIL /12:59 PM /2:32 PM
--- NOTE | 2017-03-06 16:41 | HHI.HP ---
HPI Service [facility] Primary Care Physician Antonio Villarreal MD Admission Diagnosis syncope, needs dialysis Diagnoses: Chief Complaint: Feeling unsteady, near syncope. Travel History International Travel<30 Days: No Contact w/Intl Traveler <30 Da: No Traveled to Known Affected Are: No History of Present Illness Mr. San is a pleasant 62 year old male with a history of ESRD who presented to the ED on 03/06/2017 due to unsteady gait, blurry vision, lightheadedness. He got up at night to turn the TV off, when he came to the couch, he He also complains of abdominal pain. He has not had any bowel movement in the last several days. He denies any chest pain, shortness of breath , cough, fever or chills. Patient gets dialysis Tuesday, and Tuesday. However, he arrived at the dialysis center late yesterday and was unable to receive dialysis. 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 Reported Medications Biaxin (Clarithromycin) 500 Mg Tab 500 Mg PO BID Bactrim DS (Sulfamethoxazole-Trimethoprim) 800-160 Mg Tab 1 Tab PO DAILY Calcium Acetate (Calcium Acetate (Phosphate Bin) 667 Mg Cap Renvela (Sevelamer Carbonate) 800 Mg Tab 800 Mg PO 5 TIMES A DAY [place] Rx (B-Complex W/ C & Folic Acid) 1 Tab 1 Tab PO DAILY Nifedical XL (Nifedipine) 60 Mg Tab 60 Mg PO BID Carvedilol 25 Mg Tab 25 Mg PO BID Calcitriol 0.25 Mcg Cap 0.25 Mcg PO DAILY Lisinopril 20 Mg Tab 20 Mg PO BID Clonidine (Clonidine HCl) 0.1 Mg Tab 0.1 Mg PO TID Allergies: Coded Allergies: No Known Allergies (Verified , 03/06/17) Family History Father from Meas[place]. Mother still living at the age of 92. Social History Quit smoking in 1975. Denies using alcohol. Physical Exam Vital Signs Vital Signs Date Time Temp Pulse Resp B/P Pulse Ox O2 Delivery O2 Flow Rate FiO2 03/06/17 16:06 109 03/06/17 15:48 98.0 98 18 118/71 100 03/06/17 11:48 96 21 03/06/17 09:06 82 18 105/69 96 03/06/17 06:46 91 16 118/77 100 Room Air 03/06/17 06:19 98.6 93 16 117/83 97 Room Air Physical Exam GENERAL: This is a well-nourished, well-developed patient, in no apparent distress. SKIN: No rashes, ecchymoses or lesions. Warm and dry. HEAD: Atraumatic. Normocephalic. No temporal or scalp tenderness. EYES: Pupils equal round and reactive. No injection or drainage. ENT: Nose without bleeding, purulent drainage or septal hematoma. Airway patent. NECK: Trachea midline. No lymphadenopathy. Supple, nontender, no meningeal signs. CARDIOVASCULAR: Regular rate and rhythm without murmurs, gallops, or rubs. No JVD. RESPIRATORY: Clear to auscultation. Breath sounds equal bilaterally. No wheezes , rales, or rhonchi. GASTROINTESTINAL: Abdomen soft, mildly tender to palpation pritesh on the left lower quadrant, nondistended. No guarding. MUSCULOSKELETAL: Extremities without clubbing, cyanosis, or edema. NEUROLOGICAL: Awake and alert. Cranial nerves II through XII intact. No focal neurological deficits. Normal speech. Laboratory Laboratory Tests Test 03/06/17 07:28 White Blood Count 4.2 Red Blood Count 4.25 Hemoglobin 12.2 Hematocrit 36.8 Mean Corpuscular Volume 86.5 Mean Corpuscular Hemoglobin 28.8 Mean Corpuscular Hemoglobin 33.2 Concent Red Cell Distribution Width 16.4 Platelet Count 196 Mean Platelet Volume 7.4 Neutrophils (%) (Auto) 66.6 Lymphocytes (%) (Auto) 21.0 Monocytes (%) (Auto) 9.7 Eosinophils (%) (Auto) 2.1 Basophils (%) (Auto) 0.6 Neutrophils # (Auto) 2.8 Lymphocytes # (Auto) 0.9 Monocytes # (Auto) 0.4 Eosinophils # (Auto) 0.1 Basophils # (Auto) 0.0 CBC Comment DIFF FINAL Differential Comment Sodium Level 129 Potassium Level 5.8 Chloride Level 93 Carbon Dioxide Level 19.9 Anion Gap 16 Blood Urea Nitrogen 75 Creatinine 11.90 Estimat Glomerular Filtration 5 Rate Random Glucose 112 Calcium Level 10.1 Total Bilirubin 0.4 Aspartate Amino Transf 63 (AST/SGOT) Alanine Aminotransferase 36 (ALT/SGPT) Alkaline Phosphatase 126 Total Protein 9.4 Albumin 4.2 Result Diagram: 03/06/1772703/06/17727 Imaging Last Impressions Head CT 03/06/17 0000 Signed Impressions: Service Date/Time: Monday, March 06, 2017 09:15 - CONCLUSION: 1. Stable appearance with no evidence of hemorrhage, mass or acute infarction. 2. Atrophy and chronic small vessel ischemic changes. 3. Mucosal thickening in the left maxillary sinus. Narayan Tamayo MD Chest X-Ray 03/06/17 0000 Signed Impressions: Service Date/Time: Monday, March 06, 2017 06:52 - CONCLUSION: No acute disease. Narayan Tamayo MD Abdomen X-Ray 03/06/17 0000 Signed Impressions: Service Date/Time: Monday, March 06, 2017 06:55 - CONCLUSION: Moderate to large amount of stool throughout the colon. Narayan Tamayo MD Assessment and Plan Problem List: (1) ESRD on peritoneal dialysis ICD Code: N18.6 Status: Acute (2) HTN (hypertension) ICD Code: I10 Status: Chronic (3) Syncope ICD Code: R55 Status: Acute Assessment and Plan Mr. San is a pleasant 62 year old male with a history of ESRD, HTN who presented to the ED due to syncope, unsteady gait, abdominal pain. - Syncope, near syncope - Etiology unclear. We will check orthostatics. - Consider PT consult in the AM. - ESRD - Dr. Hart already evaluated patient and patient had dialysis. - Constipation - likely the reason for patient's abdominal pain. - Start Milk of Mag, Dulcolax supp, Fleets enema PRN - If above regimen do not work, we can try Lactulose as well. - Hypertension - Patient takes Lisinopril 20mg BID, Carvedilol 25mg BID, Nifedipine 60mg BID, Clonidine 0.1mg TID. - His BP is currently within reasonable range without use of any blood pressure medications. - Hypotension from BP meds may explain patient's near syncopal episodes. - Prophylactic antibiotics - Patient reports taking Clarithromycin as well as Bactrim. Full code. SCDs. Problem Qualifiers (1) Syncope: Qualified Code: R55 - Syncope, unspecified syncope type Rhoda Loo DO March 06, 2017 4:41 pm
[2017-03-06] MEDS ORDERED: SOD PHOSPHATE/SOD BIPHOSPHATE (ADULT) ENEMA 133ML RECTAL PRN (16:45)
[2017-03-06] MEDS ORDERED: BISACODYL 10 MG SUPP RECTAL PRN (16:45)
[2017-03-06] MEDS ORDERED: MORPHINE SULFATE 4 MG/ML INJ IM ONE (16:45)
[2017-03-06] MEDS ORDERED: MORPHINE SULFATE 4 MG/ML INJ IV PUSH ONE (17:00)
[2017-03-06] MEDS ORDERED: LACTULOSE SYRUP 20 GM/30 ML CUP PO PRN (17:45)
[2017-03-06] MEDS ORDERED: MORPHINE SULFATE 4 MG/ML INJ IV PUSH PRN (17:45)
[2017-03-06] MEDS ORDERED: MORPHINE SULFATE 15 MG TAB PO PRN (17:45)
[2017-03-06] MEDS: SODIUM CHLORIDE 0.9% FLUSH 10 ML FLUSH IV FLUSH SCH (20:24)
[2017-03-06] MEDS ORDERED: TEMAZEPAM 15 MG CAP PO PRN (21:00)
[2017-03-07 00:12] VITALS: BP 118/66; PULSE 78; RESP 18; TEMP 97; O2SAT 95
[2017-03-07 01:56] VITALS: PULSE 88
[2017-03-07 04:00] VITALS: BP 122/64; PULSE 80; RESP 20; TEMP 98; O2SAT 96
[2017-03-07 06:01] LABS: AUTOMATED NEUTROPHIL # 2.7 TH/MM3 (1.8-7.7); BASOPHIL # 0.1 TH/MM3 (0-0.2); BASOPHIL % 2.5 % (0.0-2.0); EOSINOPHIL # 0.1 TH/MM3 (0-0.4); EOSINOPHIL % 1.9 % (0.0-4.0); HEMATOCRIT 38.9 % (39.0-51.0); HEMO FLAGS DIFF FINAL; LYMPH % 26.3 % (9.0-44.0); LYMPHOCYTE # 1.3 TH/MM3 (1.0-4.8); MEAN CELL VOLUME 86.2 FL (80.0-100.0); MEAN CORPUSCULAR HEMOGLOBIN 28.9 PG (27.0-34.0); MEAN CORPUSCULAR HGB CONC 33.5 % (32.0-36.0); MONO % 12.7 % (0.0-8.0); NEUT % 56.6 % (16.0-70.0); PLATELET COUNT 198 TH/MM3 (150-450); RED BLOOD COUNT 4.52 MIL/MM3 (4.50-5.90); RED CELL DISTRIBUTION WIDTH 16.9 % (11.6-17.2); WHITE BLOOD COUNT 4.9 TH/MM3 (4.0-11.0)
[2017-03-07 06:26] LABS: BICARBONATE 28.4 MEQ/L (21.0-32.0); POTASSIUM 3.9 MEQ/L (3.5-5.1)
--- NOTE | 2017-03-07 07:45 | HHI.PR ---
Subjective Remarks Follow up for near syncope, ESRD. Patient is doing well this morning. He had a good BM yesterday and feels much better. He has been walking around without any difficulty. He does not feel unsteady and no further near syncopal episodes. He has a BP measuring machine at home but does not check his BP on a regular basis. Objective Vitals Vital Signs Date Time Temp Pulse Resp B/P Pulse Ox O2 Delivery O2 Flow Rate FiO2 03/07/17 04:00 98.0 80 20 122/64 96 03/07/17 01:56 88 03/07/17 00:12 97.0 78 18 118/66 95 03/06/17 20:00 96.9 80 20 121/65 96 03/06/17 16:06 109 03/06/17 15:48 98.0 98 18 118/71 100 03/06/17 11:48 96 21 03/06/17 09:06 82 18 105/69 96 I/O 03/06/17 03/06/17 03/06/17 03/07/17 03/07/17 03/07/17 07:00 15:00 23:00 07:00 15:00 23:00 Output Total 4000 ml Balance -4000 ml Output Hemodialysis 4000 ml # Voids 2 Result Diagram: 03/07/17 0446 03/07/17 0446 Imaging Last Impressions Head CT 03/06/17 0000 Signed Impressions: Service Date/Time: Monday, March 06, 2017 09:15 - CONCLUSION: 1. Stable appearance with no evidence of hemorrhage, mass or acute infarction. 2. Atrophy and chronic small vessel ischemic changes. 3. Mucosal thickening in the left maxillary sinus. Narayan Tamayo MD Chest X-Ray 03/06/17 0000 Signed Impressions: Service Date/Time: Monday, March 06, 2017 06:52 - CONCLUSION: No acute disease. Narayan Tamayo MD Abdomen X-Ray 03/06/17 0000 Signed Impressions: Service Date/Time: Monday, March 06, 2017 06:55 - CONCLUSION: Moderate to large amount of stool throughout the colon. Narayan Tamayo MD Objective Remarks GENERAL: Alert, Oriented x 3, NAD. SKIN: Warm and dry. HEAD: Normocephalic. EYES: No scleral icterus. No injection or drainage. NECK: Supple, trachea midline. No JVD or lymphadenopathy. CARDIOVASCULAR: Regular rate and rhythm without murmurs, gallops, or rubs. RESPIRATORY: Breath sounds equal bilaterally. No accessory muscle use. GASTROINTESTINAL: Abdomen soft, non-tender, nondistended. MUSCULOSKELETAL: No cyanosis, or edema. BACK: Nontender without obvious deformity. No CVA tenderness. Procedures Had Dialysis on 03/06/2017 A/P Problem List: (1) ESRD on peritoneal dialysis ICD Code: N18.6 Status: Acute (2) HTN (hypertension) ICD Code: I10 Status: Chronic (3) Syncope ICD Code: R55 Status: Acute Assessment and Plan Mr. San is a pleasant 62 year old male with a history of ESRD, HTN who presented to the ED due to syncope, unsteady gait, abdominal pain. - Syncope, near syncope - Ambulating well. No further dizziness, lightheadedness. No further syncope or near syncope. - Multiple blood pressure meds causing hypotension could explain patient's symptoms at home. - Encouraged patient to charge up his BP machine and use it once or twice a day and monitor his BP. - If his BP is persistently high, his PCP/Medicaid Service Coordinator can introduce BP medications gradually. - Another compounding factor that may have caused further drop in blood pressure is his chronic use of Morphine IR (not listed in the home meds). - ESRD - Dr. Hart already evaluated patient and patient had dialysis on 2016. - Abdominal pain - resolved. - Constipation - likely the reason for patient's abdominal pain. - Encourage patient to continue doing bowel regimen at home. - Hypertension - Patient takes Lisinopril 20mg BID, Carvedilol 25mg BID, Nifedipine 60mg BID, Clonidine 0.1mg TID. - His last Clonidine use was day before yesterday. - His BP is currently within reasonable range without use of any blood pressure medications. - Hypotension from BP meds may explain patient's near syncopal episodes. - Will discontinue all his blood pressure medication for now. - If home BP is persistently high ( >140/90 ), Carvedilol 6.25mg BID OR Amlodipine 5mg Qday can be started in future. - Prophylactic antibiotics - Patient reports taking Clarithromycin as well as Bactrim. Full code. SCDs. Discharge patient to home Condition on discharge: Improved Renal Diet as tolerated Ad Hortencia activity Rx written: - Discontinue Carvedilol, Lisinopril, Nifedipine, Clonidine (home medications). Follow-up with primary care physician within one week and Nephrology at the time of Dialysis PRN. Problem Qualifiers (1) Syncope: Qualified Code: R55 - Syncope, unspecified syncope type Rhoda Loo DO March 07, 2017 07:45
[2017-03-07 08:21] VITALS: BP_SYST 109; BP_SYST 113; BP_SYST 137; BP_DIAS 70; BP_DIAS 73; BP_DIAS 77; PULSE 95; RESP 20; TEMP 98.5; O2SAT 98
[2017-03-07] MEDS ORDERED: CALCITRIOL 0.25 MCG CAP PO SCH (09:00)
[2017-03-07] MEDS ORDERED: SULFAMETHOXAZOLE-TRIMETHOPRIM DS 800-160 MG TAB PO SCH (09:00)
[2017-03-07] MEDS ORDERED: CLARITHROMYCIN 500 MG TAB PO SCH (09:00)
[2017-03-07] MEDS: SODIUM CHLORIDE 0.9% FLUSH 10 ML FLUSH IV FLUSH SCH (09:50)
[2017-03-07] MEDS ORDERED: SEVELAMER CARBONATE 800 MG TAB PO SCH (10:00)
--- NOTE | 2017-03-07 10:19 | HHI.NPPN ---
Subjective Interval History patient was seen and examined. He feels well. To be discharged today. Objective Data Data 03/06/17 03/07/17 18:59 06:59 Output Total 4000 ml Balance -4000 ml Output Hemodialysis 4000 ml # Voids 2 Vital Signs Date Time Temp Pulse Resp B/P Pulse Ox O2 Delivery O2 Flow Rate FiO2 03/07/17 08:21 98.5 95 20 137/77 98 113/73 109/70 03/07/17 04:00 98.0 80 20 122/64 96 03/07/17 01:56 88 03/07/17 00:12 97.0 78 18 118/66 95 03/06/17 20:00 96.9 80 20 121/65 96 03/06/17 16:06 109 03/06/17 15:48 98.0 98 18 118/71 100 03/06/17 11:48 96 21 -: 03/07/17 0446 03/07/17 0446 Physical Exam General Appearance: Well Developed, No Acute Distress Eyes Eye Exam: Pupils Equal Neck Neck Exam: Neck Supple Pulmonary Resp Exam: Clear Bilaterally, Breath Sounds Equal Cardiology CV Exam: Regular, Normal Sinus Rhythm Gastrointestinal/Abdomen GI Exam: Soft, Non-Tender, Bowel Sounds Present Musculoskeletal MS Exam: Joints Intact Integumentary Skin Exam: Intact Extremeties Extremities Exam: No Edema Neurologic Neuro Exam: Alert, Awake, Oriented, Speech Clear, Moving All Extremities Assessment/Plan Problem List: (1) ESRD on peritoneal dialysis Plan: he was dialyzed yesterday as he had missed treatment on Tuesday. He can be discharged from renal standpoint. He will continue outpatient dialysis TTS. Again discussed the importance of compliance with dialysis regimen. (2) HTN (hypertension) Plan: BP control is acceptable. Continue current medications. (3) Syncope Plan: improved symptoms. Problem Qualifiers (1) Syncope: Qualified Code: R55 - Syncope, unspecified syncope type Yordan Hernandez MD March 07, 2017 10:19
[2017-03-07 11:00] VITALS: PULSE 95
== END 2017-03-07 11:37 | disposition home or self-care (01) ==
LOC: NEPC 06:13 → NEDA 10:13 → NEPGCP 14:17
PROVIDERS: ADMIT Hospitalist; ATTEND Hospitalist
DX: R55 Syncope and collapse (principal); I12.0 Hypertensive chronic kidney disease with stage 5 chronic kidney disease or end stage renal disease; N18.6 End stage renal disease; D63.1 Anemia in chronic kidney disease; B19.20 Unspecified viral hepatitis C without hepatic coma; E87.2 Acidosis; E87.5 Hyperkalemia; K59.00 Constipation, unspecified; F41.9 Anxiety disorder, unspecified; F32.9 Major depressive disorder, single episode, unspecified; Z99.2 Dependence on renal dialysis; Z86.73 Personal history of transient ischemic attack (TIA), and cerebral infarction without residual deficits; Z91.19 Patient's noncompliance with other medical treatment and regimen; Z87.891 Personal history of nicotine dependence
CPT/HCPCS: 70450; 71010; 74000; 80048; 80053; 85025; 93005; 96374; 99285; G0257; G0378; J2270; J2405; 90935

== ENCOUNTER 2017-03-16 10:10 | Observation (INO) | payer MEDICARE, OTHER ==
[2017-03-16] VITALS (8 sets, daily range): BP systolic 138–228; BP diastolic 90–133; PULSE 75–89; RESP 17–19; TEMP 97.2–98.2; O2SAT 95–100
[~2017-03-16] VITALS: Ht 177.8 cm; Wt 60.0 kg
[~2017-03-16 10:10] MED LIST changes: +BACT800T5 PO; +BIAX500T PO; -CARV25TA PO; -CLON0.1T PO; -LISI-515 PO; -NIFE15TA PO
[2017-03-16] MEDS ORDERED: SODIUM CHLORID 0.9% 500 ML INJ 500 ML IV ONE (10:45)
[2017-03-16] MEDS ORDERED: hydrALAZINE HCL 20 MG/ML VIAL IV PUSH ONE (10:45)
[2017-03-16] MEDS ORDERED: ONDANSETRON HCL 4 MG/2 ML VIAL IV PUSH ONE (10:45)
[2017-03-16] MEDS ORDERED: HYDROmorphone HCL PF 1 MG/ML VIAL IV PUSH ONE (10:45)
[2017-03-16 11:07] LABS: AUTOMATED NEUTROPHIL # 2.6 TH/MM3 (1.8-7.7); EOSINOPHIL % 0.1 % (0.0-4.0); HEMATOCRIT 41.2 % (39.0-51.0); HEMO FLAGS DIFF FINAL; LYMPH % 27.9 % (9.0-44.0); LYMPHOCYTE # 1.2 TH/MM3 (1.0-4.8); MEAN CELL VOLUME 85.1 FL (80.0-100.0); MEAN CORPUSCULAR HEMOGLOBIN 28.8 PG (27.0-34.0); MEAN CORPUSCULAR HGB CONC 33.8 % (32.0-36.0); MONO % 11.3 % (0.0-8.0); NEUT % 59.7 % (16.0-70.0); PLATELET COUNT 125 TH/MM3 (150-450); RED BLOOD COUNT 4.85 MIL/MM3 (4.50-5.90); RED CELL DISTRIBUTION WIDTH 16.6 % (11.6-17.2); WHITE BLOOD COUNT 4.4 TH/MM3 (4.0-11.0)
[2017-03-16] MEDS ORDERED: CLON0.1T PO (11:10)
[2017-03-16] MEDS ORDERED: CORE25TA PO (11:10)
[2017-03-16] MEDS ORDERED: LISI-515 PO (11:10)
[2017-03-16] MEDS ORDERED: VITA200012 PO (11:10)
[2017-03-16] MEDS ORDERED: NIFE15TA PO (11:10)
[2017-03-16 11:35] LABS: ANION GAP 9 MEQ/L (5-15); AST (GOT) 34 U/L (15-37); BICARBONATE 25.5 MEQ/L (21.0-32.0); BLOOD UREA NITROGEN 35 MG/DL (7-18); CHLORIDE 102 MEQ/L (98-107); GLOMERULAR FILTRATION RATE 9 ML/MIN (>89); POTASSIUM 5.3 MEQ/L (3.5-5.1); SODIUM (NA) 136 MEQ/L (136-145)
--- NOTE | 2017-03-16 11:36 | RADRPT ---
EXAM DATE/TIME: 03/16/2017 10:48 [facility] COMPARISON: CHEST SINGLE AP, March 06, 2017, 6:52. INDICATIONS : Short of breath, chest pain, high blood pressure MEDICAL HISTORY : Pancreatitis. Hypertension Pancreatitis Off and on x several years.Hypertension. Renal failure, chronic. Cardiovascular disease SURGICAL HISTORY : Inguinal hernia repair. Port for dialysis. ENCOUNTER: Initial ACUITY: 3 days PAIN SCORE: 0/10 LOCATION: Bilateral chest FINDINGS: A single view of the chest demonstrates the lungs to be symmetrically aerated without evidence of mas s, infiltrate or effusion. The cardiomediastinal contours are unremarkable. Dialysis catheter in go od position. Osseous structures are intact. CONCLUSION: Negative for acute process. Marcos Gordon MD FACR on March 16, 2017 at 11:34 Board Certified Radiologist. This report was verified electronically.
[2017-03-16 11:41] LABS: ALKALINE PHOSPHATASE 110 U/L (45-117); ALT (GPT) 35 U/L (12-78); TOTAL BILIRUBIN ADULT 0.5 MG/DL (0.2-1.0)
[2017-03-16] MEDS ORDERED: LISINOPRIL 20 MG TAB PO ONE (12:00)
[2017-03-16] MEDS ORDERED: cloNIDine HCL 0.1 MG TAB PO ONE (12:00)
[2017-03-16] MEDS ORDERED: NIFEdipine 60 MG SUSTAINED RELEASE TAB PO ONE (12:00)
--- NOTE | 2017-03-16 12:19 | PD ---
HPI Chief Complaint: Hypertension Time Seen by Provider: 10:36 Travel History International Travel<30 days: No Contact w/Intl Traveler<30days: No Traveled to known affect area: No History of Present Illness HPI This is a 62-year-old man who presents to the emergency department complaining of severe epigastric abdominal pain associated with nausea vomiting ongoing for the past 2 days. Patient has a history of end-stage renal disease and has been on dialysis Tuesday. He also is being treated for some sort of infection. He is on Bactrim and azithromycin either for treatment of bacteremia or for prophylaxis, to unclear from the records. Patient states she' s had his infectious disease doctor's office today when his blood pressure is very high and so he was sent to the emergency department. He states he went to dialysis yesterday and everything proceeded normally. He's been having nausea vomiting and severe abdominal pain which exhibits recurrent pancreatitis. Is been ongoing for the past couple days. He also feels it is dry because he's been vomiting. History Past Medical History Narrative Medical End-stage renal disease, on hemodialysis Tuesday, Dr. Villarreal is his benefits advisor Hypertension Anemia TIA Hepatitis C History of pancreatitis, on peritoneal dialysis in the past Anxiety depression Tetanus Vaccination: > 5 Years Influenza Vaccination: Yes Social History Alcohol Use: No Tobacco Use: No (quit 1975) Allergies-Medications (Allergen,Severity, Reaction): Coded Allergies: No Known Allergies (Verified , 03/16/17) Reported Meds & Prescriptions Reported Meds & Active Scripts Active Reported Lisinopril 20 Mg Tab 20 Mg PO BID Clonidine (Clonidine HCl) 0.1 Mg Tab 0.3 Mg PO DAILY Vitamin D3 (Cholecalciferol) 2,000 Unit Tab 2,000 Units PO DAILY Coreg (Carvedilol) 25 Mg Tab 25 Mg PO BID Nifedical XL (Nifedipine) 60 Mg Tab 60 Mg PO BID Renvela (Sevelamer Carbonate) 800 Mg Tab 800 Mg PO 5 TIMES A DAY [place] (B-Complex W/ C & Folic Acid) 1 Tab 1 Tab PO DAILY Calcitriol 0.25 Mcg Cap 0.25 Mcg PO DAILY Review of Systems Except as stated in HPI: all other systems reviewed are Neg Physical Exam Narrative GENERAL: 62 year-old man, uncomfortable but nontoxic. SKIN: Focused skin assessment warm/dry. CARDIOVASCULAR: Regular rate and rhythm. No murmur appreciated. RESPIRATORY: No accessory muscle use. Clear to auscultation. Breath sounds equal bilaterally. GASTROINTESTINAL: Abdomen is flat and soft. Is epigastric tenderness to palpation. No rebound, some guarding. MUSCULOSKELETAL: No obvious deformities. No clubbing. No cyanosis. No edema. NEUROLOGICAL: Awake and alert. No obvious cranial nerve deficits. Motor grossly within normal limits. Normal speech. PSYCHIATRIC: Appropriate mood and affect; insight and judgment normal. Data Data Last Documented VS Vital Signs Date Time Temp Pulse Resp B/P Pulse Ox O2 Delivery O2 Flow Rate FiO2 03/16/17 12:07 98.0 89 17 190/100 100 Room Air Orders Electrocardiogram (03/16/17 ) Complete Blood Count With Diff (03/16/17 10:36) Comprehensive Metabolic Panel (03/16/17 10:36) Troponin I (03/16/17 10:36) Lipase (03/16/17 10:36) Chest, Single Ap (03/16/17 ) Hydralazine Inj (Apresoline Inj) (03/16/17 10:45) Sodium Chlorid 0.9% 500 Ml Inj (Ns 500 M (03/16/17 10:45) Hydromorphone Pf Inj (Dilaudid Pf Inj) (03/16/17 10:45) Ondansetron Inj (Zofran Inj) (03/16/17 10:45) Nifedipine Sr (Procardia Xl) (03/16/17 12:00) Lisinopril (Prinivil) (03/16/17 12:00) Clonidine (Catapres) (03/16/17 12:00) Place In Observation (03/16/17 ) Vital Signs (Adult) Q4H (03/16/17 12:40) Activity Oob Ad Hortencia (03/16/17 12:40) Diet Heart Healthy (03/16/17 Lunch) Sodium Chloride 0.9% Flush (Ns Flush) (03/16/17 12:45) Sodium Chloride 0.9% Flush (Ns Flush) (03/16/17 21:00) Acetaminophen (Tylenol) (03/16/17 12:45) Ondansetron Inj (Zofran Inj) (03/16/17 12:45) Magnesium Hydroxide Liq (Milk Of Magnesi (03/16/17 12:45) Temazepam (Restoril) (03/16/17 12:45) Basic Metabolic Panel (Bmp) (03/17/17 06:00) Complete Blood Count With Diff (03/17/17 06:00) Resp Oxygen Chito C Titrat 1-4 L (03/16/17 ) Heparin Inj (Heparin Inj) (03/16/17 13:00) Naloxone Inj (Narcan Inj) (03/16/17 12:45) Consult Nephrology (03/16/17 ) Admit Order (Ed Use Only) (03/16/17 ) Labs Laboratory Tests Test 03/16/17 10:40 White Blood Count 4.4 TH/MM3 Red Blood Count 4.85 MIL/MM3 Hemoglobin 14.0 GM/DL Hematocrit 41.2 % Mean Corpuscular Volume 85.1 FL Mean Corpuscular Hemoglobin 28.8 PG Mean Corpuscular Hemoglobin 33.8 % Concent Red Cell Distribution Width 16.6 % Platelet Count 125 TH/MM3 Mean Platelet Volume 6.2 FL Neutrophils (%) (Auto) 59.7 % Lymphocytes (%) (Auto) 27.9 % Monocytes (%) (Auto) 11.3 % Eosinophils (%) (Auto) 0.1 % Basophils (%) (Auto) 1.0 % Neutrophils # (Auto) 2.6 TH/MM3 Lymphocytes # (Auto) 1.2 TH/MM3 Monocytes # (Auto) 0.5 TH/MM3 Eosinophils # (Auto) 0.0 TH/MM3 Basophils # (Auto) 0.0 TH/MM3 CBC Comment DIFF FINAL Differential Comment Sodium Level 136 MEQ/L Potassium Level 5.3 MEQ/L Chloride Level 102 MEQ/L Carbon Dioxide Level 25.5 MEQ/L Anion Gap 9 MEQ/L Blood Urea Nitrogen 35 MG/DL Creatinine 7.32 MG/DL Estimat Glomerular Filtration 9 ML/MIN Rate Random Glucose 75 MG/DL Calcium Level 9.7 MG/DL Total Bilirubin 0.5 MG/DL Aspartate Amino Transf 34 U/L (AST/SGOT) Alanine Aminotransferase 35 U/L (ALT/SGPT) Alkaline Phosphatase 110 U/L Troponin I 0.24 NG/ML Total Protein 7.4 GM/DL Albumin 3.5 GM/DL Lipase 611 U/L [facility] Medical Decision Making Medical Screen Exam Complete: Yes Emergency Medical Condition: Yes Interpretation(s) LABS: CBC remarkable for mildly low platelet count. CMP remarkable for elevated BUN/creatinine Troponin 0.24 Lipase 611 Chest x-ray negative Differential Diagnosis Recurrent pancreatitis, dehydration, electrolyte abnormalities, hypertensive crisis, other Narrative Course Medical decision making INITIAL: This a 61-year-old man, history of end-stage renal disease, likely having a flare was of recurrent pancreatitis, at his infectious disease doctor today with markedly elevated blood pressure I going to dialysis yesterday. Otherwise looks well. We'll give pain medicine, antihypertensives, check labs, reassess. Diagnosis Primary Impression: Pancreatitis Qualified Code: K86.1 - Chronic pancreatitis, unspecified pancreatitis type Additional Impression: Hypertensive crisis Admitting Information Admitting Physician Requests: Admit Sohan Handy MD March 16, 2017 11:34
--- NOTE | 2017-03-16 12:23 | EKG ---
Date Performed: 03/16/2017 Time Performed: 10:22:45 PTAGE: 62 years EKG: Sinus rhythm LEFT ATRIAL ENLARGEMENT MARKED LEFT AXIS DEVIATION PROLONGED QT INTERVAL ABNORMAL ECG PREVIOUS TRACING : 03/06/2017 06.33 DOCTOR: Sohan Amaya Interpretating Date/Time 03/16/2017 12:22:08
[2017-03-16] MEDS ORDERED: MAGNESIUM HYDROXIDE SUSP 30 ML CUP PO PRN (12:45)
[2017-03-16] MEDS ORDERED: ACETAMINOPHEN 325 MG TAB PO PRN ×2 (12:45→15:15)
[2017-03-16] MEDS ORDERED: SODIUM CHLORIDE 0.9% FLUSH 10 ML FLUSH IV FLUSH PRN ×2 (12:45→15:15)
[2017-03-16] MEDS ORDERED: ONDANSETRON HCL 4 MG/2 ML VIAL IVP PRN (12:45)
[2017-03-16] MEDS ORDERED: NALOXONE HCL 0.4 MG/ML AMP IV PRN (12:45)
[2017-03-16] MEDS ORDERED: TEMAZEPAM 15 MG CAP PO PRN (12:45)
--- NOTE | 2017-03-16 13:39 | HHI.HP ---
[facility] Unknown Admission Diagnosis hypertensive crisis, pancreatitis, abdominal pain Diagnoses: Chief Complaint: Left sided abdominal pain. Travel History International Travel<30 Days: No Contact w/Intl Traveler <30 Da: No Traveled to Known Affected Are: No History of Present Illness Mr. San, known to me from previous admission, is a pleasant 62 year old male with a history of hypertension, ESRD on HD on Tue who presented to the ED on 03/16/2017 due to left sided abdominal pain that started on 03/14/2017. His abdominal pain was mostly left sided but without any radiation to the back. He reports subjective fever as well as nausea, vomiting but no diarrhea. He was at his Infectious disease doctor's office today (Dr. Toussaint) where he was found to have very high BP - systolic above 200. ID office advised patient to report to the ED. On arrival, his BP was 228/133. He received his home medications (Carvedilol, lisinopril, Nifedipine as well as IV hydralazine). At the time of this interview, his BP was improved to around 155 systolic. Patient denies any chest pain, shortness of breath. He reports abdominal pain. Denies any changes in bladder or bowel habits. No significant weight loss. 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 Reported Medications Lisinopril 20 Mg Tab 20 Mg PO BID Clonidine (Clonidine HCl) 0.1 Mg Tab 0.3 Mg PO DAILY Vitamin D3 (Cholecalciferol) 2,000 Unit Tab 2,000 Units PO DAILY Coreg (Carvedilol) 25 Mg Tab 25 Mg PO BID Nifedical XL (Nifedipine) 60 Mg Tab 60 Mg PO BID Renvela (Sevelamer Carbonate) 800 Mg Tab 800 Mg PO 5 TIMES A DAY [place] (B-Complex W/ C & Folic Acid) 1 Tab 1 Tab PO DAILY Calcitriol 0.25 Mcg Cap 0.25 Mcg PO DAILY Allergies: Coded Allergies: No Known Allergies (Verified , 03/16/17) Family History Father from Measles. Mother still living at the age of 92. Social History Quit smoking in 1975. Denies using alcohol. Physical Exam Vital Signs Vital Signs Date Time Temp Pulse Resp B/P Pulse Ox O2 Delivery O2 Flow Rate FiO2 03/16/17 12:07 98.0 89 17 190/100 100 Room Air 03/16/17 11:23 87 18 208/106 100 Room Air 03/16/17 10:25 85 17 100 Room Air 03/16/17 10:17 97.8 86 18 228/133 100 Physical Exam GENERAL: This is a well-nourished, well-developed patient, in no apparent distress. SKIN: No rashes, ecchymoses or lesions. Warm and dry. HEAD: Atraumatic. Normocephalic. No temporal or scalp tenderness. EYES: Pupils equal round and reactive. No injection or drainage. ENT: Nose without bleeding, purulent drainage or septal hematoma. Airway patent. NECK: Trachea midline. No lymphadenopathy. Supple, nontender, no meningeal signs. CARDIOVASCULAR: Regular rate and rhythm without murmurs, gallops, or rubs. No JVD. RESPIRATORY: Clear to auscultation. Breath sounds equal bilaterally. No wheezes , rales, or rhonchi. GASTROINTESTINAL: Abdomen soft, tender to palpation over epigastric and left side, nondistended. No guarding. MUSCULOSKELETAL: Extremities without clubbing, cyanosis, or edema. NEUROLOGICAL: Awake and alert. Cranial nerves II through XII intact. No focal neurological deficits. Normal speech. Laboratory Laboratory Tests Test 03/16/17 10:40 White Blood Count 4.4 Red Blood Count 4.85 Hemoglobin 14.0 Hematocrit 41.2 Mean Corpuscular Volume 85.1 Mean Corpuscular Hemoglobin 28.8 Mean Corpuscular Hemoglobin 33.8 Concent Red Cell Distribution Width 16.6 Platelet Count 125 Mean Platelet Volume 6.2 Neutrophils (%) (Auto) 59.7 Lymphocytes (%) (Auto) 27.9 Monocytes (%) (Auto) 11.3 Eosinophils (%) (Auto) 0.1 Basophils (%) (Auto) 1.0 Neutrophils # (Auto) 2.6 Lymphocytes # (Auto) 1.2 Monocytes # (Auto) 0.5 Eosinophils # (Auto) 0.0 Basophils # (Auto) 0.0 CBC Comment DIFF FINAL Differential Comment Sodium Level 136 Potassium Level 5.3 Chloride Level 102 Carbon Dioxide Level 25.5 Anion Gap 9 Blood Urea Nitrogen 35 Creatinine 7.32 Estimat Glomerular Filtration 9 Rate Random Glucose 75 Calcium Level 9.7 Total Bilirubin 0.5 Aspartate Amino Transf 34 (AST/SGOT) Alanine Aminotransferase 35 (ALT/SGPT) Alkaline Phosphatase 110 Troponin I 0.24 Total Protein 7.4 Albumin 3.5 Lipase 611 Result Diagram: 03/16/17 1040 03/16/17 1040 Imaging Last Impressions Chest X-Ray 03/16/17 0000 Signed Impressions: Service Date/Time: Tuesday, March 16, 2017 10:48 - CONCLUSION: Negative for acute process. Marcos Gordon MD FACR Assessment and Plan Problem List: (1) Accelerated hypertension ICD Code: I10 Status: Acute (2) ESRD on peritoneal dialysis ICD Code: N18.6 Status: Acute (3) Hyperkalemia ICD Code: E87.5 Status: Acute (4) Chronic pancreatitis ICD Code: K86.1 Status: Acute Assessment and Plan Mr. San is a pleasant 62 year old male with a history of HTN , ESRD who presented to the ED due to abdominal pain and accelerated HTN noted when he visited his ID physician today. - Accelerated hypertension - At home, patient takes Lisinopril 20mg BID, Carvedilol 25mg BID, Nifedipine 60mg BID, Clonidine 0.3mg Qday. - Continue Carvedilol 25mg BID, Lisinopril 20mg BID, Nifedipine 60mg BID, Clonidine 0.3mg Qday. - Clonidine 0.1mg PRN - If needed, we can add Hydralazine PRN as well. - ESRD - Nephrology is following. Dialysis tomorrow 03/17/2017. - Chronic pancreatitis - Lipase 611. Abdominal pain and other clinical symptoms are not consistent with acute pancreatitis. - May consider Creon - Start Percocet PO and Dilaudid IV for pain as needed. Full code. Heparin SQ. Rhoda Loo DO March 16, 2017 13:39
[2017-03-16] MEDS: HEPARIN SODIUM - SQ 10,000 UNITS/ML VIAL SQ SCH (13:49)
[2017-03-16] MEDS: oxyCODONE/ACETAMINOPHEN 7.5 MG/325 MG TAB PO PRN ×2 (15:02→22:32)
[2017-03-16] MEDS ORDERED: SODIUM CHLOR 0.9% 1000 ML INJ 1,000 ML IV PRN ×3 (15:03)
[2017-03-16] MEDS ORDERED: cloNIDine HCL 0.1 MG TAB PO PRN (15:15)
[2017-03-16] MEDS ORDERED: NITROGLYCERIN 0.4 MG SL 25 TABS/BTL SL PRN (15:15)
[2017-03-16] MEDS ORDERED: GELATIN 12 MM/7 MM FOAM TOP PRN (15:15)
[2017-03-16] MEDS ORDERED: ALBUMIN HUMAN 25% 25 GM/100 ML BAGP IV PRN (15:15)
[2017-03-16] MEDS ORDERED: MANNITOL 12.5 GM/50 ML VIAL IV PRN (15:15)
[2017-03-16] MEDS ORDERED: ONDANSETRON HCL 4 MG/2 ML VIAL IV PRN (15:15)
[2017-03-16] MEDS ORDERED: HEPARIN SODIUM - IV 10,000 UNITS/10 ML VIAL IVF PRN (15:15)
[2017-03-16] MEDS ORDERED: GENTAMICIN SULFATE (DIALYSIS USE ONLY) 20 MG/2 ML VIAL IV PRN (15:15)
[2017-03-16] MEDS ORDERED: HEPARIN SODIUM - IV 10,000 UNITS/10 ML VIAL PRN (15:15)
[2017-03-16] MEDS ORDERED: diphenhydrAMINE HCL 25 MG CAP PO PRN (15:15)
--- NOTE | 2017-03-16 15:56 | PD.CONS ---
HPI Service Nephrology Consult Requested By [facility] Reason for Consult ESRD on HD Primary Care Physician Unknown History of Present Illness This is a 62 y/o AAM patient who came to ER for severe abdominal pain he has had for 2 to 3 days. PMH of HTN, anemia, prior pancreatitis, anxiety/depression , hepatitis C, and metabolic bone disorder. He also has ESRD, dialyzes TTS, had full treatment yesterday. He has been treated for positive blood cultures (Gram positive) with oral Biaxin and Bactrim for the past couple weeks, and has been following with ID, Dr. Toussaint. A revision of his fistula and Permcath exchange has been done, yet the fistula is immature. On arrival to the hospital he was in hypertensive urgency, BP 228/133, but denied any chest pain. We were consulted for dialysis management during this admission, he is currently under observation status for pancreatitis. Labs show K of 5.3 and lipase of 611, otherwise there are no significant abnormalities. His hemoglobin is 14, and he he does not exhibit leukocytosis. IV pain medication and antiemetics were given and he does reports slight relief. His Blood pressure was treated with home medications and has responded nicely, resulting blood pressure of 155/90. He is a full code. (Anne-Marie Baugh) Review of Systems Constitutional: COMPLAINS OF: Change in appetite, DENIES: Fatigue Cardiovascular: DENIES: Chest pain Gastrointestinal: COMPLAINS OF: Abdominal pain, Nausea, Vomiting, DENIES: Black stools Genitourinary: DENIES: Urgency, Hematuria, Dysuria Psychiatric: COMPLAINS OF: Anxiety, DENIES: Depression (Anne-Marie Baugh) Past Family Social History Allergies: Coded Allergies: No Known Allergies (Verified , 03/16/17) Past Medical History ESRD, on hemodialysis TTS (previously on PD); we follow him outpatient recent positive blood cultures on oral antibiotics, follows with ID Hypertension Anemia TIA Hepatitis C History of pancreatitis Anxiety/depression metabolic bone disorder Past Surgical History hernia repair x 2 PD catheter placement and removal AVF placement Reported Medications Lisinopril 20 Mg Tab 20 Mg PO BID Clonidine (Clonidine HCl) 0.1 Mg Tab 0.3 Mg PO DAILY Vitamin D3 (Cholecalciferol) 2,000 Unit Tab 2,000 Units PO DAILY Coreg (Carvedilol) 25 Mg Tab 25 Mg PO BID Nifedical XL (Nifedipine) 60 Mg Tab 60 Mg PO BID Renvela (Sevelamer Carbonate) 800 Mg Tab 800 Mg PO 5 TIMES A DAY [place] Rx (B-Complex W/ C & Folic Acid) 1 Tab 1 Tab PO DAILY Calcitriol 0.25 Mcg Cap 0.25 Mcg PO DAILY Active Ordered Medications Current Medications Medications (Trade) Dose Ordered Sig/Nuria Route Start Time Stop Time Status Last Admin (NS Flush) 2 ml UNSCH PRN IV FLUSH 03/16/17 12:45 (NS Flush) 2 ml BID IV FLUSH 03/16/17 21:00 (Tylenol) 650 mg Q4H PRN PO 03/16/17 12:45 (Zofran Inj) 4 mg Q6H PRN IVP 03/16/17 12:45 (Milk Of Magnesia Liq) 30 ml Q12H PRN PO 03/16/17 12:45 (Restoril) 15 mg HS PRN PO 03/16/17 12:45 (Heparin Inj) 5,000 units Q12H SQ 03/16/17 13:00 03/16/17 13:49 (Narcan Inj) 0.4 mg UNSCH PRN IV 03/16/17 12:45 (Dilaudid Pf Inj) 1 mg Q4H PRN IV PUSH 03/16/17 13:45 (Percocet 7.5-325 Mg) 1 tab Q6H PRN PO 03/16/17 13:45 03/16/17 15:02 Family History no hx of renal impairment Social History Former smoker former ETOH, denies recent use functionally independent lives locally unemployed full code (Anne-Marie Baugh) Physical Exam Vital Signs Vital Signs Date Time Temp Pulse Resp B/P Pulse Ox O2 Delivery O2 Flow Rate FiO2 03/16/17 13:49 97.8 77 18 155/90 100 Room Air 03/16/17 12:07 98.0 89 17 190/100 100 Room Air 03/16/17 11:23 87 18 208/106 100 Room Air 03/16/17 10:25 85 17 100 Room Air 03/16/17 10:17 97.8 86 18 228/133 100 Physical Exam Young appearing elderly AAM, lying on stretcher holding abdominal area awake/oriented x 3, in mild distress lungs clear in all go CV: S1/S2, no murmurs or rubs, rate in 90s; permcath on right Abd: normal bowel sounds, slightly tender, + guarding Ext: no edema in lower extremities ; right arm AVF patient, + thrill/bruit Laboratory Laboratory Tests Test 03/16/17 10:40 White Blood Count 4.4 Red Blood Count 4.85 Hemoglobin 14.0 Hematocrit 41.2 Mean Corpuscular Volume 85.1 Mean Corpuscular Hemoglobin 28.8 Mean Corpuscular Hemoglobin 33.8 Concent Red Cell Distribution Width 16.6 Platelet Count 125 Mean Platelet Volume 6.2 Neutrophils (%) (Auto) 59.7 Lymphocytes (%) (Auto) 27.9 Monocytes (%) (Auto) 11.3 Eosinophils (%) (Auto) 0.1 Basophils (%) (Auto) 1.0 Neutrophils # (Auto) 2.6 Lymphocytes # (Auto) 1.2 Monocytes # (Auto) 0.5 Eosinophils # (Auto) 0.0 Basophils # (Auto) 0.0 CBC Comment DIFF FINAL Differential Comment Sodium Level 136 Potassium Level 5.3 Chloride Level 102 Carbon Dioxide Level 25.5 Anion Gap 9 Blood Urea Nitrogen 35 Creatinine 7.32 Estimat Glomerular Filtration 9 Rate Random Glucose 75 Calcium Level 9.7 Total Bilirubin 0.5 Aspartate Amino Transf 34 (AST/SGOT) Alanine Aminotransferase 35 (ALT/SGPT) Alkaline Phosphatase 110 Troponin I 0.24 Total Protein 7.4 Albumin 3.5 Lipase 611 (Anne-Marie Baugh) Result Diagram: 03/16/17 1040 03/16/17 1040 Imaging Last 72 hours Impressions Chest X-Ray 03/16/17 0000 Signed Impressions: Service Date/Time: Thursday, March 16, 2017 10:48 - CONCLUSION: Negative for acute process. Marcos Gordon MD FACR (Anne-Marie Baugh) Assessment and Plan Problem List: (1) End stage renal disease Plan: resume HD TTS, he had full treatment yesterday, no indication for extra session, we will dialyze tomorrow repeat K level in am no acute renal concerns, has permcath for HD, has immature AV fistula at this time avoid IVF, nephrotoxins renal diet, low K, low Na with no protein restriction intermittent renal panel (2) Abdominal pain Plan: with hx of pancreatitis, denies recent ETOH use lipase is elevated given pain medications, antiemetics; monitor the patient clinically, further plan depending on patient's response (3) Hypertensive crisis Plan: resume home medications including: Nifedipine 60 mg BID Clonidine 0.3 mg daily lisinopril 20 mg BID Coreg 25 mg BID titrate dosages as needed (4) Sepsis Plan: has been treated for positive blood cultures in outpatient setting for gram positive organism he was placed on Biaxin, then has been following with Dr. Toussaint (OR) for further work up; he was at the ID office when he was sent to ER Bactrim was added to regimen we will contact the office and determine if the antibiotics were to be continued Permcath was replaced in the past month (5) Metabolic bone disease Plan: intermittent phosphorus level, continue Renvela (6) Anemia Plan: Hb is above goal epogen not required, continue to monitor Hb (Anne-Marie Baugh) Assessment and Plan patient was seen and examined in the ER. Apparently he was placed on Cipro, we will discuss with ID physician to determine the duration. Dialysis tomorrow. He does have history of pancreatitis in the past. (Yordan Hernandez MD) Anne-Marie Baugh March 16, 2017 15:56 Yordan Hernandez MD March 16, 2017 20:28
[2017-03-16] MEDS: SEVELAMER CARBONATE 800 MG TAB PO SCH ×2 (18:45→20:52)
[2017-03-16] MEDS: SODIUM CHLORIDE 0.9% FLUSH 10 ML FLUSH IV FLUSH SCH (19:49)
[2017-03-16] MEDS: HYDROmorphone HCL PF 1 MG/ML VIAL IV PUSH PRN (19:50)
[2017-03-16] MEDS: NIFEdipine 60 MG SUSTAINED RELEASE TAB PO SCH (20:52)
[2017-03-16] MEDS: LISINOPRIL 20 MG TAB PO SCH (20:52)
[2017-03-16] MEDS: CARVEDILOL 12.5 MG TAB PO SCH (20:52)
[2017-03-16] MEDS: CIPROFLOXACIN 500 MG TAB PO SCH (20:52)
[2017-03-17 00:13] VITALS: BP 118/74; PULSE 83; RESP 19; TEMP 98.2; O2SAT 98
[2017-03-17] MEDS: HYDROmorphone HCL PF 1 MG/ML VIAL IV PUSH PRN (03:06)
[2017-03-17] MEDS: HEPARIN SODIUM - SQ 10,000 UNITS/ML VIAL SQ SCH (03:06)
[2017-03-17] MEDS: SEVELAMER CARBONATE 800 MG TAB PO SCH (06:00)
[2017-03-17 06:46] LABS: AUTOMATED NEUTROPHIL # 1.6 TH/MM3 (1.8-7.7); BASOPHIL % 1.1 % (0.0-2.0); EOSINOPHIL % 1.2 % (0.0-4.0); HEMATOCRIT 34.4 % (39.0-51.0); HEMO FLAGS DIFF FINAL; LYMPH % 32.6 % (9.0-44.0); MEAN CORPUSCULAR HEMOGLOBIN 28.4 PG (27.0-34.0); MEAN CORPUSCULAR HGB CONC 33.4 % (32.0-36.0); MONO % 13.1 % (0.0-8.0); PLATELET COUNT 118 TH/MM3 (150-450); RED BLOOD COUNT 4.05 MIL/MM3 (4.50-5.90); RED CELL DISTRIBUTION WIDTH 16.2 % (11.6-17.2); WHITE BLOOD COUNT 3.1 TH/MM3 (4.0-11.0)
[2017-03-17 07:18] LABS: BICARBONATE 27.1 MEQ/L (21.0-32.0); POTASSIUM 5.6 MEQ/L (3.5-5.1)
[2017-03-17] MEDS ORDERED: SEVELAMER CARBONATE 800 MG TAB PO SCH (08:00)
[2017-03-17] MEDS ORDERED: cloNIDine HCL 0.1 MG TAB PO SCH (08:00)
[2017-03-17 08:20] VITALS: BP 155/88; PULSE 91; RESP 20; TEMP 97.8; O2SAT 97
[2017-03-17] MEDS: CARVEDILOL 12.5 MG TAB PO SCH (08:25)
[2017-03-17] MEDS: SODIUM CHLORIDE 0.9% FLUSH 10 ML FLUSH IV FLUSH SCH (08:25)
[2017-03-17] MEDS: LISINOPRIL 20 MG TAB PO SCH (08:26)
[2017-03-17] MEDS: NIFEdipine 60 MG SUSTAINED RELEASE TAB PO SCH (08:26)
--- NOTE | 2017-03-17 08:49 | HHI.NPPN ---
Subjective Renal Failure: Chronic, End Stage Renal Disease Interval History Resting quietly. Still reporting LUQ abdominal pain. Due for dialysis. (Anne-Marie Baugh) Review of Systems Gastrointestinal Gastrointestinal: Abdominal Pain, Nausea & Vomiting (Anne-Marie Baugh) Objective Data Data 03/16/17 03/17/17 19:00 07:00 Intake Total 300 ml Balance 300 ml Intake Oral 300 ml # Bowel Movements 0 Vital Signs Date Time Temp Pulse Resp B/P Pulse Ox O2 Delivery O2 Flow Rate FiO2 03/17/17 08:20 97.8 91 20 155/88 97 03/17/17 03:52 16 03/17/17 00:13 98.2 83 19 118/74 98 03/16/17 23:44 16 03/16/17 20:36 21 03/16/17 19:07 98.2 82 19 138/91 97 03/16/17 18:21 168/106 03/16/17 17:15 100 21 03/16/17 16:00 97.2 75 18 176/111 95 03/16/17 13:49 97.8 77 18 155/90 100 Room Air 03/16/17 12:07 98.0 89 17 190/100 100 Room Air 03/16/17 11:23 87 18 208/106 100 Room Air 03/16/17 10:25 85 17 100 Room Air 03/16/17 10:17 97.8 86 18 228/133 100 (Anne-Marie Baugh) -: 03/17/17 0628 03/17/17 0628 Imaging Last 72 hours Impressions Chest X-Ray 03/16/17 0000 Signed Impressions: Service Date/Time: Thursday, March 16, 2017 10:48 - CONCLUSION: Negative for acute process. Marcos Gordon MD FACR (Anne-Marie Baugh) Physical Exam General Appearance: Well Developed, Well Nourished, No Acute Distress (Anne-Marie Baugh) Eyes Eye Exam: Pupils Equal (Anne-Marie Baugh) Neck Neck Exam: Neck Supple, Trachea Midline (Anne-Marie Baugh) Pulmonary Resp Exam: Clear Bilaterally, Breath Sounds Equal (Anne-Marie Baugh) Cardiology CV Exam: Regular, Normal Sinus Rhythm, Good Perfusion (Anne-Marie Baugh) Gastrointestinal/Abdomen GI Exam: Soft, Non-Tender, Bowel Sounds Present (Anne-Marie Baugh) Musculoskeletal MS Exam: Joints Intact, Normal Gait (Anne-Marie Baugh) Integumentary Skin Exam: Warm, Dry (Anne-Marie Baugh) Extremeties Extremities Exam: No Edema, Pedal Pulses Palpable (Anne-Marie Baugh) Neurologic Neuro Exam: Alert, Awake, Oriented, Speech Clear, Moving All Extremities ( Anne-Marie Baugh) Psychiatric Psych Exam: Appropriate Responses (Anne-Marie Baugh) Assessment/Plan Problem List: (1) End stage renal disease Plan: resume HD TTS, he is due today hyperkalemic today, should correct with dialysis no acute renal concerns, has permcath for HD, has immature AV fistula at this time avoid IVF, nephrotoxins renal diet, low K, low Na with no protein restriction intermittent renal panel he informs me he may leave AMA to have dialysis outpatient at [facility]. (2) Abdominal pain Plan: with hx of pancreatitis, denies recent ETOH use lipase is elevated given pain medications, antiemetics; monitor the patient clinically, further plan depending on patient's response (3) Hypertensive crisis Plan: continue home medications including: Nifedipine 60 mg BID Clonidine 0.3 mg daily lisinopril 20 mg BID Coreg 25 mg BID titrate dosages as needed, BP has improved (4) Sepsis Plan: has been treated for positive blood cultures in outpatient setting for gram positive organism spoke with Dr. Toussaint, antibiotics changed to include Cipro 500 mg po daily permcath has been replaced outpatient (5) Metabolic bone disease Plan: intermittent phosphorus level, continue Renvela (6) Anemia Plan: Hb is above goal epogen not required, continue to monitor Hb (Anne-Marie Baugh) Plan patient was seen and examined. Agree with above assessment and plan. (Yordan Hernandez MD) Anne-Marie Baugh March 17, 2017 08:49 Yordan Hernandez MD March 17, 2017 21:25
[2017-03-17] MEDS ORDERED: CALCITRIOL 0.25 MCG CAP PO SCH (09:00)
[2017-03-17] MEDS ORDERED: CHOLECALCIFEROL (VIT D3) 1000 UNIT TAB PO SCH (09:00)
[2017-03-17] MEDS ORDERED: cloNIDine HCL 0.3 MG TAB PO SCH (09:00)
[2017-03-17] MEDS ORDERED: VITAMIN B CMPLX/VITC/FOLIC AC CAP PO SCH (09:00)
--- NOTE | 2017-03-17 09:25 | HHI.PR ---
Subjective Remarks Follow-up for chronic abdominal pain, HTN, noncompliance. The patient reports that he's had chronic mid abdominal and left upper quadrant abdominal pain for years. He denies any acute worsening. He states that this is due to his pancreas. He denies history of HIV, tested a few years ago at [place]. The patient refuses further workup at this time for the abdominal pain. He states that he has a caustic operator, Dr. Solis, 3 states hasn't done anything for the abdominal pain. He refused dialysis here this morning. He is asking to go home so that he can get some pain medication that he has at home and then go to his outpatient dialysis at 3 PM. He states that he takes half of a 30 mg morphine at home. When asked who is prescribing his pain medication he states "you know there are pill vu all over the place". 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 He states that he is off of illegal substances at this time. He is currently eating breakfast. He denies any worsening abdominal pain when he eats. Again the patient refuses any further workup here because he wants to manage his pain at home and go to his outpatient dialysis unit today. Objective Vitals Vital Signs Date Time Temp Pulse Resp B/P Pulse Ox O2 Delivery O2 Flow Rate FiO2 03/17/17 08:20 97.8 91 20 155/88 97 03/17/17 03:52 16 03/17/17 00:13 98.2 83 19 118/74 98 03/16/17 23:44 16 03/16/17 20:36 21 03/16/17 19:07 98.2 82 19 138/91 97 03/16/17 18:21 168/106 03/16/17 17:15 100 21 03/16/17 16:00 97.2 75 18 176/111 95 03/16/17 13:49 97.8 77 18 155/90 100 Room Air 03/16/17 12:07 98.0 89 17 190/100 100 Room Air 03/16/17 11:23 87 18 208/106 100 Room Air 03/16/17 10:25 85 17 100 Room Air 03/16/17 10:17 97.8 86 18 228/133 100 I/O 5/17/17 5/03/16/17 03/17/17 03/17/17 03/17/17 07:00 15:00 23:00 07:00 15:00 23:00 Intake Total 300 ml Balance 300 ml Intake Oral 300 ml # Bowel Movements 0 Result Diagram: 03/17/17 0628 03/17/17 0628 Imaging Last Impressions Chest X-Ray 03/16/17 0000 Signed Impressions: Service Date/Time: Thursday, March 16, 2017 10:48 - CONCLUSION: Negative for acute process. Marcos Gordon MD FACR Objective Remarks GENERAL: Well-developed well-nourished. In no acute distress. SKIN: Warm and dry. No lesions noted. HEENT: Normocephalic. Pupils equal and round. Mucous membranes pink and moist. CARDIOVASCULAR: Regular rate and rhythm. No murmur appreciated. RESPIRATORY: No accessory muscle use. Clear to auscultation. Breath sounds equal bilaterally. GASTROINTESTINAL: Abdomen soft, tender in the mid abdomen and LUQ, nondistended. Bowel sounds x4. MUSCULOSKELETAL: No obvious deformities. No clubbing or cyanosis. No edema. NEUROLOGICAL: Awake and alert. No focal neurological deficits. Moves upper and lower extremities spontaneously. Normal speech. PSYCHIATRIC: Appropriate mood and affect; insight and judgment normal. A/P Problem List: (1) Accelerated hypertension ICD Code: I10 Status: Acute (2) ESRD on peritoneal dialysis ICD Code: N18.6 Status: Acute (3) Hyperkalemia ICD Code: E87.5 Status: Acute (4) Chronic pancreatitis ICD Code: K86.1 Status: Acute Assessment and Plan Mr. San is a 62 year old male with a history of HTN, ESRD who presented to the ED due to abdominal pain and accelerated HTN noted when he visited his ID physician prior to admission. - Accelerated hypertension, improved - At home, patient takes Lisinopril 20mg BID, Carvedilol 25mg BID, Nifedipine 60mg BID, Clonidine 0.3mg Qday. - Continue Carvedilol 25mg BID, Lisinopril 20mg BID, Nifedipine 60mg BID. - Change clonidine from Clonidine 0.3mg Qday to 0.1 mg 3 times a day. - Clonidine 0.1mg PRN - ESRD - Nephrology consulted. Patient refused dialysis here today. He is adamant that he wants to go home and dialyze outpatient this afternoon at 3 PM. Continue medications for MBD. - Abdominal pain. Chronic pancreatitis. - Lipase 611. Abdominal pain is chronic may be and due to chronic pancreatitis. The patient refuses any additional inpatient workup for abdominal pain. - Agreeable for trial of Creon - Reports no improvement with IV Dilaudid and Percocet. Wants to go home to take his morphine that he obtained from a "pill mill" - Continue outpatient follow-up with his caustic operator, Dr. Solis. Full code. Heparin SQ. Discharge Planning Discussed with Dr. Garcia Discharge patient to home Condition on discharge: Improved Renal Diet as tolerated Regular activity Rx written: Creon Follow-up with primary care physician, nephrology, gastroenterology Jed Nevarez March 17, 2017 09:25
[2017-03-17] MEDS ORDERED: CREO3000 PO (09:26)
[2017-03-17] MEDS ORDERED: CLON0.1T PO (09:26)
[2017-03-17] MEDS ORDERED: LIPASE/PROTEASE/AMYLASE (6,000/19,000/30,000) CAP PO ONE (09:30)
[2017-03-17] MEDS: CIPROFLOXACIN 500 MG TAB PO SCH (11:00)
== END 2017-03-17 11:52 | disposition home or self-care (01) ==
LOC: NEPC 10:10 → NEDA 13:41 → NEPGCP 15:54
PROVIDERS: ADMIT Internal Medicine; ATTEND Internal Medicine
DX: K86.1 Other chronic pancreatitis (principal); A41.9 Sepsis, unspecified organism; I12.0 Hypertensive chronic kidney disease with stage 5 chronic kidney disease or end stage renal disease; N18.6 End stage renal disease; I16.9 Hypertensive crisis, unspecified; B19.20 Unspecified viral hepatitis C without hepatic coma; E87.5 Hyperkalemia; D63.1 Anemia in chronic kidney disease; E88.89 Other specified metabolic disorders; Z86.73 Personal history of transient ischemic attack (TIA), and cerebral infarction without residual deficits; Z99.2 Dependence on renal dialysis; Z87.891 Personal history of nicotine dependence
CPT/HCPCS: 71010; 80048; 80053; 83690; 84100; 84484; 85025; 93005; 96361; 96374; 96375; 99285; G0378; J0360; J1170; J1644; J2405; J7040

== ENCOUNTER 2017-05-20 19:28 | Emergency (ER) | payer MEDICARE, OTHER ==
[~2017-05-20] VITALS: Ht 177.8 cm; Wt 62.0 kg
[~2017-05-20 19:28] MED LIST changes: -BACT800T5 PO; -BIAX500T PO; -CALC667C; +CALCIUM CHLORIDE 10% SOLN 1 GRAM/10 ML SYR IV ONE; +CLON0.1T PO; +CORE25TA PO; +CREO3000 PO; +EPINEPHrine HCL (1:10,000) 1 MG/10 ML SYRINGE IV ONE; +LISI-515 PO; +NIFE15TA PO; +NOREPINEPHRINE 4 MG/4 ML AMP IV ONE; +SODIUM BICARBONATE 8.4% INJ 50 MEQ/50 ML SYR IV ONE; +VITA200012 PO
[2017-05-20 19:30] VITALS: BP 192/119; PULSE 93; RESP 18; TEMP 97.5; O2SAT 98
[2017-05-20] MEDS ORDERED: DEXTROSE 50% IN WATER 50 ML VIAL(D50) IV PUSH ONE (20:00)
[2017-05-20] MEDS ORDERED: CALCIUM GLUCONATE 10% 1 GM/10 ML VIAL SLOW IVP ONE (20:00)
[2017-05-20] MEDS ORDERED: SODIUM BICARBONATE 8.4% SOLN 50 MEQ/50 ML VIAL SLOW IVP ONE (20:00)
[2017-05-20 20:06] VITALS: BP 175/120; PULSE 90; RESP 22; O2SAT 98
[2017-05-20 20:13] LABS: AUTOMATED NEUTROPHIL # 8.4 TH/MM3 (1.8-7.7); BASOPHIL # 0.1 TH/MM3 (0-0.2); BASOPHIL % 1.2 % (0.0-2.0); EOSINOPHIL % 0.3 % (0.0-4.0); HEMATOCRIT 52.5 % (39.0-51.0); HEMO FLAGS DIFF FINAL; LYMPH % 6.6 % (9.0-44.0); LYMPHOCYTE # 0.6 TH/MM3 (1.0-4.8); MEAN CELL VOLUME 94.4 FL (80.0-100.0); MEAN CORPUSCULAR HEMOGLOBIN 30.9 PG (27.0-34.0); MEAN CORPUSCULAR HGB CONC 32.8 % (32.0-36.0); MONO % 3.3 % (0.0-8.0); NEUT % 88.6 % (16.0-70.0); PLATELET COUNT 174 TH/MM3 (150-450); RED BLOOD COUNT 5.56 MIL/MM3 (4.50-5.90); RED CELL DISTRIBUTION WIDTH 18.8 % (11.6-17.2); WHITE BLOOD COUNT 9.5 TH/MM3 (4.0-11.0)
[2017-05-20] MEDS ORDERED: DEXTROSE 50% IN WATER 50 ML SYRINGE ONE (20:13)
[2017-05-20] MEDS ORDERED: INSULIN HUMAN REGULAR 1,000 UNITS/10 ML VIAL IV PUSH ONE (20:15)
[2017-05-20] MEDS ORDERED: ROCURONIUM INJ 50 MG/5 ML VIAL ONE (20:29)
[2017-05-20] MEDS ORDERED: SODIUM BICARBONATE 8.4% INJ 50 MEQ/50 ML SYR IV PUSH ONE (20:30)
[2017-05-20] MEDS ORDERED: EPINEPHrine HCL (1:10,000) 1 MG/10 ML SYRINGE ONE (20:45)
[2017-05-20 21:11] LABS: MAGNESIUM 4.5 MG/DL (1.5-2.5)
[2017-05-20 21:12] LABS: BICARBONATE 19.9 MEQ/L (21.0-32.0)
[2017-05-20 21:15] LABS: POTASSIUM 7.4 MEQ/L (3.5-5.1)
--- NOTE | 2017-05-20 21:17 | PD ---
HPI Chief Complaint: Chest Pain Time Seen by Provider: 19:52 Travel History International Travel<30 days: No Contact w/Intl Traveler<30days: No Traveled to known affect area: No History of Present Illness HPI The patient 62 years old. He has end-stage renal disease. He arrives with chest pain and palpitations. He reports he has felt chest pain for about 7 hours or so. Shortness of breath is also reported. The patient undergoes dialysis Saturdays. He missed his last dialysis session. The patient's older sister who is in the room reports the patient vomited once en route to the ER. The patient follows with Dr. Lauren Villarreal. Problems with the R AV fistula are reported. PFSH Past Medical History Hx Anticoagulant Therapy: No Anemia: Yes Arthritis: Yes Asthma: No Autoimmune Disease: No Blood Disorders: No Anxiety: Yes Depression: No Heart Rhythm Problems: No Cancer: No Cardiomyopathy: Yes Cardiovascular Problems: Yes (HBP) High Cholesterol: No Chemotherapy: No Chest Pain: No COPD: No Cerebrovascular Accident: Yes (TIA) Diabetes: No Dialysis: Yes (hemodialysis ) Diminished Hearing: No Endocrine: No Gastrointestinal Disorders: Yes (HX PERITONITIS ) GERD: Yes Glaucoma: No Genitourinary: Yes Headaches: Yes ("of and on for the past 7 years and "when I get angry") Hepatitis: Yes (C) Hiatal Hernia: No Heparin Induced Thrombocytopen: No Hypertension: Yes Immune Disorder: No Implanted Vascular Access Dvce: Yes Kidney Stones: No Musculoskeletal: Yes (ARTHRITIS, NECK/BACK PAIN) Neurologic: No Psychiatric: No Reproductive: No Respiratory: No Immunizations Current: Yes Migraines: No Radiation Therapy: No Renal Failure: Yes Seizures: No Sickle Cell Disease: No Sleep Apnea: No Thyroid Disease: No Ulcer: No Tetanus Vaccination: < 5 Years Influenza Vaccination: No Past Surgical History Abdominal Surgery: Yes (Bilateral Inguinal Hernia repair in 1960s) AICD: No Appendectomy: No Arteriovenous Shunt: Yes (RIGHT ARM) Body Medical Devices: AV DIALYSIS GRAFT (LEFT ARM), RIGHT UPPER ARM FISTULA, VAS CATH IN RIGHT CH Cardiac Surgery: No Cholecystectomy: No Ear Surgery: No Endocrine Surgery: No Eye Surgery: Yes (Knot removed from left upper eye lid ) Genitourinary Surgery: No Gynecologic Surgery: No Insulin Pump: No Joint Replacement: No Neurologic Surgery: No Oral Surgery: No Pacemaker: No Thoracic Surgery: Yes (Lumpectomy on left chest breast tissue removed 25 years ago ) Other Surgery: Yes (LUMP REMOVED FROM RIGHT BREAST TISSUE, FISTULA TO RIGHT ARM ) Social History Alcohol Use: No Tobacco Use: No Substance Use: No Allergies-Medications (Allergen,Severity, Reaction): Coded Allergies: No Known Allergies (Verified , 05/20/17) Reported Meds & Prescriptions Reported Meds & Active Scripts Active Creon (Pancrelipase) 3,000-9,500-15,000 Units Cap 1 Cap PO TIDPC Clonidine (Clonidine HCl) 0.1 Mg Tab 0.1 Mg PO TID Reported Lisinopril 20 Mg Tab 20 Mg PO BID Vitamin D3 (Cholecalciferol) 2,000 Unit Tab 2,000 Units PO DAILY Coreg (Carvedilol) 25 Mg Tab 25 Mg PO BID Nifedical XL (Nifedipine) 60 Mg Tab 60 Mg PO BID Renvela (Sevelamer Carbonate) 800 Mg Tab 800 Mg PO 5 TIMES A DAY [place] Rx (B-Complex W/ C & Folic Acid) 1 Tab 1 Tab PO DAILY Calcitriol 0.25 Mcg Cap 0.25 Mcg PO DAILY Review of Systems Except as stated in HPI: all other systems reviewed are Neg General / Constitutional: No: Fever Cardiovascular: Positive: Chest Pain or Discomfort Respiratory: Positive: Shortness of Breath Physical Exam Narrative GENERAL: 62-year-old male speaking sentences mild distress secondary to pain and /or dyspnea SKIN: Warm and dry. HEAD: Atraumatic. Normocephalic. EYES: Pupils equal and round. No scleral icterus. No injection or drainage. ENT: No nasal bleeding or discharge. Mucous membranes pink and moist. NECK: Trachea midline. No JVD. CARDIOVASCULAR: Regular rate and rhythm. RESPIRATORY: No accessory muscle use. Clear to auscultation. Breath sounds equal bilaterally. GASTROINTESTINAL: Abdomen soft, non-tender, nondistended. Hepatic and splenic margins not palpable. MUSCULOSKELETAL: Extremities without clubbing, cyanosis, or edema. There is a right AV fistula with palpable thrill. NEUROLOGICAL: Awake and alert. No obvious cranial nerve deficits. Motor grossly within normal limits. Five out of 5 muscle strength in the arms and legs. Normal speech. PSYCHIATRIC: Appropriate mood and affect; insight and judgment normal. Data Data Last Documented VS Vital Signs Date Time Temp Pulse Resp B/P Pulse Ox O2 Delivery O2 Flow Rate FiO2 7/21/17 20:20 15.00 100 05/20/17 20:06 90 22 175/120 98 05/20/17 20:06 Room Air 05/20/17 19:30 97.5 Vital signs reviewed Orders Electrocardiogram (05/20/17 20:00) Complete Blood Count With Diff (05/20/17 20:00) Magnesium (Mg) (05/20/17 20:00) Phosphorus (Po4) (05/20/17 20:00) Potassium, Serum (K) (05/20/17 23:00) Iv Access Insert/Monitor (05/20/17 20:00) Ecg Monitoring (05/20/17 20:00) Oximetry (05/20/17 20:00) Blood Glucose (05/20/17 20:00) Oxygen Administration (05/20/17 20:00) Calcium Gluconate Inj (Calcium Gluconate (05/20/17 20:00) Insulin Human Regular Inj (Novolin R Inj (05/20/17 20:15) Dextrose 50% In Mone (Vial) Inj (D50w (Vi (05/20/17 20:00) Basic Metabolic Panel (Bmp) (05/20/17 20:00) Dextrose 50% In Mone (Syr) Inj (D50w (Syr (05/20/17 20:13) Sodium Bicarbonate 8.4% Inj (Sodium Bica (05/20/17 20:30) Rocuronium Inj (Zemuron Inj) (05/20/17 20:29) Epinephrine (1:10,000) Inj (Epinephrine (05/20/17 20:45) Labs Laboratory Tests Test 05/20/17 20:00 White Blood Count 9.5 TH/MM3 Red Blood Count 5.56 MIL/MM3 Hemoglobin 17.2 GM/DL Hematocrit 52.5 % Mean Corpuscular Volume 94.4 FL Mean Corpuscular Hemoglobin 30.9 PG Mean Corpuscular Hemoglobin 32.8 % Concent Red Cell Distribution Width 18.8 % Platelet Count 174 TH/MM3 Mean Platelet Volume 7.2 FL Neutrophils (%) (Auto) 88.6 % Lymphocytes (%) (Auto) 6.6 % Monocytes (%) (Auto) 3.3 % Eosinophils (%) (Auto) 0.3 % Basophils (%) (Auto) 1.2 % Neutrophils # (Auto) 8.4 TH/MM3 Lymphocytes # (Auto) 0.6 TH/MM3 Monocytes # (Auto) 0.3 TH/MM3 Eosinophils # (Auto) 0.0 TH/MM3 Basophils # (Auto) 0.1 TH/MM3 CBC Comment DIFF FINAL Differential Comment Sodium Level 128 MEQ/L Potassium Level 7.4 MEQ/L Chloride Level 89 MEQ/L Carbon Dioxide Level 19.9 MEQ/L Anion Gap 19 MEQ/L Blood Urea Nitrogen 127 MG/DL Creatinine 21.06 MG/DL Estimat Glomerular Filtration 3 ML/MIN Rate Random Glucose 142 MG/DL Calcium Level 9.1 MG/DL Phosphorus Level 15.1 MG/DL Magnesium Level 4.5 MG/DL [facility] Medical Decision Making Medical Screen Exam Complete: Yes Emergency Medical Condition: Yes Differential Diagnosis Hyperkalemia, volume overload, acute coronary syndrome, CHF, anemia, pneumonia, pleural effusion Narrative Course EKG reveals a sinus rhythm with a QRS interval of 213 concerning for hyperkalemia, rate 85 CBC & BMP Diagram 05/20/17 20:00 Potassium 7.4 1944 pt arrived to room 1954 EKG reviewed by ms 1956 pt reviewed by ms 2004 hyperkalemia orders placed: insulin 10u/dextrose 50, bicarb x 3, 2 g calcium gluconate ordered along with cardiopulmonary monitoring CBC BMP 2004 plan for stat HD d/w Dr Hailey Contreras was called to the bedside due to altered mental status. The patient was unresponsive with no pulse. Chest compressions were immediately started with BVM ventilations. An interosseous line was obtained epinephrine calcium bicarbonate insulin and dextrose were administered immediately. A second provider placed a left femoral vein central line. ACLS protocol was continued with epinephrine calcium bicarbonate given multiple times. The patient was successfully intubated on the first attempt. Intermittent thready carotid artery pulse was palpable at times during pulse checks however typically stopped within about 10 seconds. Hyperkalemic EKG changes observed upon the patient's arrival. Hyperkalemia was treated as cause for cardiopulmonary arrest. The lab called reporting a potassium of 7.4. Of note Dr. Hart of nephrology was contacted by me immediately after I saw the patient with a plan to perform stat dialysis. Treatment for hyperkalemia was ordered immediately after the patient was evaluated with insulin dextrose, bicarbonate 3, 2g calcium gluconate. Transthoracic ultrasound revealed cardiac akinesis. Throughout the resuscitative effort the family was present. The 2 younger sisters entered the room various times and in consultation with them the code was terminated at 9:03 PM. Critical Care Narrative Aggregate critical care time was 35 minutes. Time to perform other separately billable procedures was not included in the critical care time. My time did not include minutes spent treating any other patients simultaneously or on activities that did not directly contribute to the patient's treatment. The services I provided to this patient were to treat and/or prevent clinically significant deterioration that could result in: Cardiopulmonary arrest, multiorgan injury I provided critical care services requiring my management, as noted below: Chart data review, documentation time, medication orders and management, vital sign assessments/reviewing monitor data, ordering and reviewing lab tests, ordering and interpreting/reviewing x-rays and diagnostic studies, care of the patient and discussion of the patient with the admitting physicians. Procedures Procedure Narrative After the risks and benefits were discussed the following procedure was performed: INTUBATION: The patient was put in optimal position for the procedure. The patient was intubated with a 8-0 cuffed endotracheal tube. Tube placement was confirmed by visualization of the tube and balloon passing through the cords, capnometry and subsequent chest x-ray. Breath sounds were equal and well aerated bilaterally postintubation. No breath sounds over stomach. Patient tolerated procedure well. Diagnosis Primary Impression: Cardiopulmonary arrest Additional Impressions: Hyperkalemia Disposition: 20 Condition: Stable Shawn Lucas MD May 20, 2017 21:17
--- NOTE | 2017-05-21 12:13 | EKG ---
Date Performed: 05/20/2017 Time Performed: 19:42:10 PTAGE: 62 years EKG: Sinus rhythm WITH LEFT BUNDLE BRANCH BLOCK LEFT ATRIAL ENLARGEMENT INTRAVENTRICULAR CONDUCTION DELAY PROLONGED CO RRECTED QT INTERVAL PEAKED T WAVES IN LEAD V3 CONSIDER ANTERIOR INJURY PATTERN CLINICAL CORRELATION R ECOMMENDED ABNORMAL ECG PREVIOUS TRACING : 03/16/2017 10.22 DOCTOR: Alex Mayo Interpretating Date/Time 05/21/2017 12:12:48
== END 2017-05-21 00:47 | disposition expired ==
LOC: NEPE 19:28
DX: I46.9 Cardiac arrest, cause unspecified (principal); E87.5 Hyperkalemia; I12.0 Hypertensive chronic kidney disease with stage 5 chronic kidney disease or end stage renal disease; N18.6 End stage renal disease; I42.9 Cardiomyopathy, unspecified; I44.7 Left bundle-branch block, unspecified; Z99.2 Dependence on renal dialysis; Z86.73 Personal history of transient ischemic attack (TIA), and cerebral infarction without residual deficits
CPT/HCPCS: 31500; 80048; 83735; 84100; 85025; 93005; 99291; J0171